=== PATIENT | female | born 2000 | race Caucasian/White ===

== ENCOUNTER 2020-10-16 15:51 | Emergency (ER) | payer OTHER, SELFPAY ==
[2020-10-16 16:17] VITALS: BP 136/76; PULSE 71; RESP 16; TEMP 36.7; O2SAT 100; BMI 26.2
--- NOTE | 2020-10-16 16:34 | CT_ITS ---
EXAMINATION: CT SOFT TISSUE NECK WITH CONTRAST CLINICAL INFORMATION: 19-year-old girl with difficulty swallowing and left-sided throat swelling. COMPARISON: None TECHNIQUE: Following the intravenous administration of 60 mL of Omnipaque 350 intravenous contrast, helical imaging was performed in the axial plane with generation of coronal and sagittal reformatted images. This CT examination was performed using dose optimization techniques as appropriate, variously including the following: *Automated exposure control *Adjustment of mA and/or kV according to patient size (this includes techniques or standardized protocols for targeted exams where dose is matched to indication/reason for exam; i.e. extremities or head) *Use of iterative reconstruction technique DLP: 363 mGy-cm FINDINGS: The palatine tonsils are globally enlarged showing diffuse enhancement but no discrete abscess formation. No bulk cervical adenopathy is identified. Scattered nodes are seen in both sides of the neck. Small lymph nodes are also present in the submandibular region. The parotid glands are homogeneous in attenuation. The submandibular glands are normal. No contour abnormality or pathologic enhancement is seen within the oral cavity or pharyngeal mucosal space. The laryngeal structures are normal. The parapharyngeal fat is preserved. The carotid sheath vasculature opacify normally. No extra mucosal soft tissue mass or fluid collection is seen. No retropharyngeal fluid collection is seen. The thyroid gland is normal. Ectopic thymic tissue is seen in the superior mediastinum. Series 4, image 48. The lung apices are clear. Small hilar lymph nodes are present. The mastoid air cells and visualized portions of the paranasal sinuses are well-aerated. The temporomandibular joints are normal. No periapical disease is identified. No osseous abnormalities are seen. The imaged portions of the brain parenchyma are unremarkable. CT/CT soft tissue neck w con IMPRESSION: Inflammation of the palatine tonsils. No abscess formation.
[2020-10-16] MEDS: 0.9 % Sodium Chloride 1,000 ML 1000 ML IV (17:10)
[2020-10-16 17:16] LABS: Basophils Absolute Auto 0.1 X10*3/uL (0.0-0.2); Basophils Percent Auto 0.5 % (0-2); Eosinophils Absolute Auto 0.6 X10*3/uL (0.0-0.4); Eosinophils Percent Auto 5.1 % (0-4); Hematocrit 40.5 % (37-47); Imm Gran Abs Auto 0.03 X10*3/uL (0.00-0.03); Imm Gran Pct Auto 0.3 % (0.0-0.4); Lymphocytes Absolute Auto 3.1 X10*3/uL (1.2-4.9); Lymphocytes Percent Auto 28.9 % (20-40); MANUAL DIFF FLAG NO; Mean Corpuscular HGB Conc 32.1 g/dl (31.0-35.0); Mean Corpuscular Hemoglobin 27.5 pg (27.0-33.0); Mean Corpuscular Volume 85.8 fL (80-98); Mean Platelet Volume 9.8 fL (9.4-12.3); Monocytes Absolute Auto 0.6 X10*3/uL (0.1-1.2); Monocytes Percent Auto 5.6 % (2-11); Neutrophils Absolute Auto 6.4 X10*3/uL (2.0-8.3); Neutrophils Percent Auto 59.6 % (45-73); Platelet Count 282 X10*3/uL (160-400); Red Blood Count 4.72 X10*6/uL (4.20-5.50); Red Cell Distribution Width 12.2 % (11.0-16.0); White Blood Count 10.7 X10*3/uL (4.8-10.8)
[2020-10-16 17:26] LABS: UPreg QC Valid YES; Urine Pregnancy NEGATIVE (NEGATIVE)
[2020-10-16 17:31] VITALS: BP 117/75; PULSE 66; RESP 18; O2SAT 100
[2020-10-16 17:36] LABS: Alanine Aminotransferase 13 U/L (0-31); Albumin Level 4.5 g/dL (3.5-5.0); Alkaline Phosphatase 97 U/L (39-117); Anion Gap 12 (12-20); Aspartate Amino Transferase 16 U/L (5-31); Bilirubin Total 0.4 mg/dL (0.0-1.0); Blood Urea Nitrogen 13 mg/dL (9-16); Calcium 9.6 mg/dL (8.4-10.2); Carbon Dioxide 27 mmol/L (22-29); Chloride 105 mmol/L (96-108); Creatinine Clr Calc Pharmacy 108.7; Estimated Glomerular Filt Rate > 60; Glucose Random 81 mg/dL (60-115); Potassium 4.3 mmol/l (3.3-5.1); Sodium 140 mmol/L (135-145); Total Protein 7.5 g/dL (6.5-8.0)
[2020-10-16] MEDS: iohexoL 350 MG/ML 100 ML INFUS..BTL IV (18:00)
[2020-10-16 19:03] VITALS: BP 112/71; PULSE 80; RESP 18; TEMP 36.6; O2SAT 100
--- NOTE | 2020-10-16 19:21 | ED.ABDPAIN ---
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 States some pain with swallowing otherwise no difficulty swallowing. Exacerbating factors: eating Relieving factors: nothing Treatments prior to arrival: NSAIDs Related Data Home Medications Medication Instructions Recorded Confirmed albuterol 90 mcg INHALATION NEEDED 10/16/20 10/16/20 Previous Rx's Medication Instructions Recorded azithromycin [Zithromax Z-Jarret] 250 mg PO DAILY 5 Days #6 tab 10/16/20 ibuprofen 800 mg PO Q8H PRN #15 tab 10/16/20 Allergies Allergy/AdvReac Type Severity Reaction Status Date / Time No Known Allergies Allergy Verified 10/16/20 16:22 Review of Systems Review of Systems Constitutional: No Weight loss, No Fever, No Chills, No Night Sweats, No Fatigue, No Malaise ENT/Mouth: No Hearing loss, No Ear Pain, No Nasal Congestion, No Sinus Pain, No Hoarseness, + sore throat Eyes: No Eye Pain, No Swelling, No Redness, No Foreign Body, No Discharge, No Vision Changes Cardiovascular: No Chest Pain, No SOB, No Dyspnea on Exertion, No Orthopnea, No Edema, No Palpitations Respiratory: No Cough, No Sputum, No Wheezing, No Smoke Exposure, No Dyspnea Gastrointestinal: No Nausea, No Vomiting, No Diarrhea, No Constipation, No abdominal Pain, No Hematochezia, No Melena Genitourinary: no irregular bleeding, No Dysuria, No Urinary Frequency, No Hematuria Musculoskeletal: No joint pain, No Myalgias, No Joint Swelling Skin: No Skin Lesions, No rash Neuro: No Weakness, No Numbness, No Paresthesias, No Loss of Consciousness Psych: No Anxiety/Panic, No Depression, No SI/HI/AH/VH, No Social Issues Heme/Lymph: No Bruising, No Bleeding,No Lymphadenopathy Endocrine: No Polyuria, No Polydipsia, No Temperature Intolerance Yes all other systems are reviewed and are negative Physical Exam Vital Signs: Vital Signs: Last Vital Signs Temp 98 F 10/16/20 19:03 Pulse 80 10/16/20 19:03 Resp 18 10/16/20 19:03 BP 112/71 10/16/20 19:03 Pulse Ox 100 10/16/20 19:03 Body Mass Index 26.2 Reviewed Const: General: cooperative and healthy appearing; No acute distress or intoxicated appearing Nutritional Appearance: average body habitus Orientation/consciousness: patient oriented x3 HENMT: Head: Yes normal to inspection Ears: hearing grossly normal bilaterally Mouth/tongue images: 1. Bilateral palatine tonsils inflamed 3+. No unilateral swelling. Posterior pharynx without swelling. 2. Eyes: General: appearance normal, both eyes and all related structures Visual Cannon: normal visual cannon by confrontation Neck: Neck: Yes normal visual inspection, No positive Brudzinski's sign, No positive Kernig's sign and No tender Thyroid: Thyroid normal Chest: Chest palpation & inspection: normal inspection of the chest Resp: Effort & Inspection: normal respiratory effort Cardio: Jugular venous distension: no JVD : General: Yes no CVA tenderness Back/Spine/Pelvis: Back: no CVA tenderness Skin: General skin exam: no rashes or lesions noted Neuro: General: patient oriented x3 Extrem: General: Yes normal to inspection Course Course Course Narrative: CT shows inflammation of the palatine tonsils otherwise no evidence of abscess formation. Patient given dose of dexamethasone here and clindamycin. Eating/drinking/managing or secretions well. Will be discharged home with clear precaution return follow-up instructions. Agreeable stable for discharge. MDM - Abdominal Pain Lab Data Result diagrams: 10/16/20 17:09 10/16/20 17:09 Labs: Lab Results 10/16/20 10/16/20 10/16/20 Range/Units 17:09 17:09 17:09 WBC 10.7 (4.8-10.8) X10*3/uL RBC 4.72 (4.20-5.50) X10*6/uL Hgb 13.0 (12.0-16.0) g/dl Hct 40.5 (37-47) % MCV 85.8 (80-98) fL MCH 27.5 (27.0-33.0) pg MCHC 32.1 (31.0-35.0) g/dl RDW 12.2 (11.0-16.0) % Plt Count 282 (160-400) X10*3/uL MPV 9.8 (9.4-12.3) fL Immature Gran % (Auto) 0.3 (0.0-0.4) % Neut % (Auto) 59.6 (45-73) % Lymph % (Auto) 28.9 (20-40) % Glades % (Auto) 5.6 (2-11) % Eos % (Auto) 5.1 H (0-4) % Baso % (Auto) 0.5 (0-2) % Lymph # (Auto) 3.1 (1.2-4.9) X10*3/uL Glades # (Auto) 0.6 (0.1-1.2) X10*3/uL Eos # (Auto) 0.6 H (0.0-0.4) X10*3/uL Baso # (Auto) 0.1 (0.0-0.2) X10*3/uL Abs Immat Gran (auto) 0.03 (0.00-0.03) X10*3/uL Absolute Neuts (auto) 6.4 (2.0-8.3) X10*3/uL Absolute Nucleated RBC 0.000 (0.0-0.012) X10*3/uL Nucleated RBC % (auto) 0.0 (0.0-0.2) /100WBC Sodium 140 (135-145) mmol/L Potassium 4.3 (3.3-5.1) mmol/l Chloride 105 (96-108) mmol/L Carbon Dioxide 27 (22-29) mmol/L Anion Gap 12 (12-20) BUN 13 (9-16) mg/dL Creatinine 0.65 (0.5-1.4) mg/dL Estim Creat Clear Calc 108.7 Estimated GFR > 60 Random Glucose 81 (60-115) mg/dL Calcium 9.6 (8.4-10.2) mg/dL Total Bilirubin 0.4 (0.0-1.0) mg/dL AST 16 (5-31) U/L ALT 13 (0-31) U/L Alkaline Phosphatase 97 (39-117) U/L Total Protein 7.5 (6.5-8.0) g/dL Albumin 4.5 (3.5-5.0) g/dL Urine Test NEGATIVE (NEGATIVE) Discharge Plan Discharge Clinical Impression: Acute tonsillitis Qualifiers: Pharyngitis/tonsillitis etiology: unspecified etiology Qualified Code(s): J03.90 - Acute tonsillitis, unspecified Patient Disposition: Home, Self-Care Additional Instructions: Salt water gargle Throat lozenges Take her prescribed antibiotics for full course Tylenol or ibuprofen for pain discomfort per label instructions Return if any concerns or worsening symptoms otherwise follow up with her primary care doctor in 1 week Thank you Prescriptions: New azithromycin [Zithromax Z-Jarret] 250 mg tablet 250 mg PO DAILY 5 Days Qty: 6 RF: 0 ibuprofen 800 mg tablet 800 mg PO Q8H PRN (Reason: pain) Qty: 15 RF: 0 No Action albuterol 90 mcg/actuation Aerosol 90 mcg INHALATION NEEDED RF: 0 Referrals: Irasema Taylor MD [Primary Care Provider] - 5 days [facility] Social History Social History Alcohol intake: never Smoked in Last 30 Days: No Use of substances other than those prescribed or required for medical reasons: No Advance Directives: No Advance Directives Information Provided: Yes
[2020-10-16 20:00] VITALS: BP 116/79; PULSE 79; RESP 18; TEMP 36.6; O2SAT 99
[2020-10-16] MEDS: dexAMETHasone sod phosphate 4 MG/ML VIAL IVPUSH (20:03)
== END 2020-10-16 20:04 | disposition home or self-care (01) ==
PROVIDERS: Nurse Practitioner Primary Care; Emergency Provider Emergency Medicine; PCP Pediatrics
DX: J03.90 Acute tonsillitis, unspecified (principal); R07.0 Pain in throat; Z79.899 Other long term (current) drug therapy; Z20.828 Contact with and (suspected) exposure to other viral communicable diseases
CPT/HCPCS: 36415; 70491; 80053; 81025; 85025; 87071; 87880; 96360; 99284; J1100; Q9967

== ENCOUNTER 2020-12-19 09:32 | Outpatient (REF) | payer OTHER, SELFPAY ==
--- NOTE | 2020-12-19 14:17 | XR_ITS ---
EXAMINATION: XR KNEE, BILATERAL XR KNEE, RIGHT XR KNEE, LEFT CLINICAL INFORMATION: Knee pain. COMPARISON: None TECHNIQUE: AP standing view of both knees. 2 additional views of each knee. FINDINGS: Right knee: No fracture or subluxation. Compartmental joint spaces are maintained. No joint effusion. The soft tissues are unremarkable. Left knee: No fracture or subluxation. Compartmental joint spaces are maintained. No joint effusion. The soft tissues are unremarkable. XR/XR knee RT 2V IMPRESSION: Normal appearance of the knees.
--- NOTE | 2020-12-19 14:17 | XR_ITS ---
EXAMINATION: XR KNEE, BILATERAL XR KNEE, RIGHT XR KNEE, LEFT CLINICAL INFORMATION: Knee pain. COMPARISON: None TECHNIQUE: AP standing view of both knees. 2 additional views of each knee. FINDINGS: Right knee: No fracture or subluxation. Compartmental joint spaces are maintained. No joint effusion. The soft tissues are unremarkable. Left knee: No fracture or subluxation. Compartmental joint spaces are maintained. No joint effusion. The soft tissues are unremarkable. XR/XR knee standing BI IMPRESSION: Normal appearance of the knees.
--- NOTE | 2020-12-19 14:17 | XR_ITS ---
EXAMINATION: XR KNEE, BILATERAL XR KNEE, RIGHT XR KNEE, LEFT CLINICAL INFORMATION: Knee pain. COMPARISON: None TECHNIQUE: AP standing view of both knees. 2 additional views of each knee. FINDINGS: Right knee: No fracture or subluxation. Compartmental joint spaces are maintained. No joint effusion. The soft tissues are unremarkable. Left knee: No fracture or subluxation. Compartmental joint spaces are maintained. No joint effusion. The soft tissues are unremarkable. XR/XR knee LT 2V IMPRESSION: Normal appearance of the knees.
== END 2020-12-19 09:33 | disposition home or self-care (01) ==
LOC: HO.HOSX 09:32
PROVIDERS: Visit Provider Physician Assistant
DX: M22.2X1 Patellofemoral disorders, right knee (principal); M22.2X2 Patellofemoral disorders, left knee
CPT/HCPCS: 73560; 73565; 99202

== ENCOUNTER 2021-06-19 14:58 | Outpatient (REF) | payer OTHER, SELFPAY ==
[2021-06-19 15:26] LABS: MANUAL DIFF FLAG NO
[2021-06-19 15:29] LABS: Basophils Percent Auto 0.3 % (0-2); Eosinophils Absolute Auto 0.3 X10*3/uL (0.0-0.4); Hematocrit 40.5 % (37-47); Hemoglobin 13.3 g/dl (12.0-16.0); Imm Gran Abs Auto 0.03 X10*3/uL (0.00-0.03); Imm Gran Pct Auto 0.3 % (0.0-0.4); Lymphocytes Percent Auto 22.3 % (20-40); Mean Corpuscular HGB Conc 32.8 g/dl (31.0-35.0); Mean Corpuscular Hemoglobin 27.8 pg (27.0-33.0); Mean Corpuscular Volume 84.6 fL (80-98); Mean Platelet Volume 9.7 fL (9.4-12.3); Monocytes Absolute Auto 0.5 X10*3/uL (0.1-1.2); Monocytes Percent Auto 5.6 % (2-11); Neutrophils Percent Auto 68.5 % (45-73); Platelet Count 273 X10*3/uL (160-400); Red Blood Count 4.79 X10*6/uL (4.20-5.50); Red Cell Distribution Width 12.2 % (11.0-16.0); White Blood Count 8.7 X10*3/uL (4.8-10.8)
[2021-06-19 15:54] LABS: Alanine Aminotransferase 19 U/L (0-31); Albumin Level 4.3 g/dL (3.5-5.0); Alkaline Phosphatase 89 U/L (39-117); Anion Gap 13 (12-20); Aspartate Amino Transferase 23 U/L (5-31); Bilirubin Total 0.5 mg/dL (0.0-1.0); Blood Urea Nitrogen 11 mg/dL (9-16); Calcium 9.9 mg/dL (8.4-10.2); Carbon Dioxide 26 mmol/L (22-29); Chloride 106 mmol/L (96-108); Cholesterol 191 mg/dL; Estimated Glomerular Filt Rate > 60; Glucose Fasting 85 mg/dL (60-99); HDL Cholesterol 48 mg/dL; LDL Cholesterol Calculated 130 mg/dl; Potassium 4.7 mmol/L (3.3-5.1); Sodium 140 mmol/L (135-145); Total Protein 7.2 g/dL (6.5-8.0); Triglycerides 69 mg/dL
[2021-06-19 16:14] LABS: Thyroid Stimulating Hormone 0.55 uIU/mL (0.32-4.0)
[2021-06-24 12:52] LABS: Vitamin D 25-OH, D2 <4 ng/mL; Vitamin D 25-OH, D3 21 ng/mL; Vitamin D 25-OH, Total 21 ng/mL (30-100)
== END 2021-06-19 14:59 | disposition home or self-care (01) ==
LOC: HO.LAB 14:58
PROVIDERS: PCP Internal Medicine; Visit Provider Internal Medicine
DX: E66.3 Overweight (principal); E55.9 Vitamin D deficiency, unspecified; E78.5 Hyperlipidemia, unspecified; D64.9 Anemia, unspecified
CPT/HCPCS: 36415; 80053; 80061; 82306; 84443; 85025

== ENCOUNTER 2023-08-12 14:21 | Outpatient (AMB) | payer OTHER, SELFPAY ==
--- NOTE | 2023-08-12 14:25 | MHC.PC.OV ---
Vital Signs 08/12/23 14:27 Height 4 ft 11 in Weight 132 lb BMI 26.7 BP 116/64 Blood Pressure Location Lt brachial Position Sitting Respiration 12 Pulse 87 Pulse Source Pulse Oximeter Pulse Oximetry (%) 98 Oxygen Delivery Method Room Air Intake Visit Reasons: Annual Exam Non Destructive Testing Supervisor Required: No Accompanied by: Self / Same As Patient Allergies Seasonal Allergies Allergy (Intermediate, Verified 08/12/23 14:37) sneezing, mucus Medication List - Last Reconciled 08/12/23 by RIRI Hamilton albuterol sulfate 90 mcg/actuation 2 puffs inhalation Q6H PRN 30 days Tobacco use date assessed: 08/12/23 Dental Screening Dental Screen Date: 08/12/23 Did you have a dental visit in the last 12 months?: Yes Did you have a dental problem in the last 6 months where you did not have access to dental care?: No Was dental information given to patient?: Patient has dentist HPI HPI Comments History of Present Illness Details This is a 21-year-old female with mild asthma and patellofemoral bilateral knee arthralgia. Patient of Dr. Adria gifford seen in 2021. Patient presents today for physical exam. Patient reports sore throat x1 week denies any fever, chills, cough, nasal congestion. Rapid strep completed office negative. Patient denies any chest pain, palpitations, syncope. Patient does report that the [facility] today did her hemoglobin which the reported to her was 7 via fingerstick. Patient does report she does get fatigued and has dizziness at times. Will obtain CBC to further evaluate. Pap:2 years ago, Follows with Jose dennis annually for well woman exams. Eye exam: Recommended every couple years. [facility] Medical History Abdominal pain Overweight (BMI 25.0-29.9) Mild asthma Surgical History No pertinent past surgical history Family History Mother No problems noted. Father No problems noted. Social History Housing: House Alcohol intake: current Alcohol intake frequency: holidays/special occasions only Alcohol type: other Patient Tobacco Use Status: Never used Tobacco e-Cigarette/Vaping Use: Never Used Second Hand Smoke Exposure: No service: No Current occupational status: employed Current occupation: [employer] Current occupational exposures/hazards: No Cognitive needs: No Hearing needs: No Vision needs: No Questionnaire Thrive Questionnaire Date Thrive assessed: 06/19/21 LUDMILA-7 AMB Questionnaire LUDMILA-7 Date LUDMILA - 7 assessed: 06/19/21 Source: Developed by Drs. Pete Begum, Christy Michelle, Mike Cameron and colleagues, with an educational sybil from [employer]. Review of Systems Const Denies chills, Denies fatigue, Denies fever(s) and Denies poor appetite Eyes Denies no additional complaints ENT Reports Normal hearing present Card Denies chest pain, Denies syncope, Denies rapid heart rate and Denies dyspnea Resp Denies cough and Denies dyspnea GI Denies change in stool character, Denies constipation, Denies diarrhea, Denies nausea and Denies vomiting Denies urinary frequency, Denies dysuria and Denies urinary urgency Neuro Reports Normal hearing present, Denies confusion and Denies syncope Psych Denies confusion Endo Denies fatigue Physical exam (Primary Care) Vital Signs: Last Vital Signs Pulse 87 08/12/23 14:27 Resp 12 08/12/23 14:27 BP 116/64 08/12/23 14:27 Pulse Ox 98 08/12/23 14:27 Oxygen Delivery Method Room Air 08/12/23 14:27 BMI result Body Mass Index 26.7 Tobacco/Smoking Status: Tobacco use Status Tobacco use date assessed 08/12/23 08/12/23 14:32 Patient Tobacco Use Status Never used Tobacco 08/12/23 14:32 e-Cigarette/Vaping Use Never Used 08/12/23 14:32 Thrive Assessment: Date of Thrive Assessment Date Thrive assessed 06/19/21 08/12/23 14:32 Const General: No confusion Orientation/consciousness: No confusion HENMT Head: Yes normocephalic and Yes atraumatic Ears: external ears normal and TM's normal bilaterally General nose exam: Normal external nose present and Normal nasal mucous membranes and turbinates present Face and sinus: Yes normal facial exam and Yes sinuses nontender Mouth: moist mucous membranes Throat: Yes tonsils normal Eyes Conjunctivae: conjunctivae normal Sclerae: sclerae normal Pupils: Equal, round and reactive pupils present and Pupils normal by confrontation EOM: EOMs intact bilaterally Direct Ophthalmoscopy: normal light reflex Neck Neck: Yes no lymphadenopathy and Yes supple Thyroid: Thyroid normal Chest Chest palpation & inspection: normal inspection of the chest Resp Effort & Inspection: normal respiratory effort Auscultation: clear to auscultation bilaterally, no crackles, no rhonchi and no wheezes Cardio Rate: regular rate Rhythm: regular rhythm Peripheral pulses: radial pulses present and dorsalis pedis present GI Inspection: Yes normal to inspection Palpation (GI): Soft to palpation, nontender and No hepatosplenomegaly present Auscultation: normoactive bowel sounds Skin General skin exam: no rashes or lesions noted Neuro General: No confusion Cranial nerves: Yes Equal, round and reactive pupils present and Yes Normal hearing present Cognition (Neuro): normal cognition Gait exam (Neuro): Normal gait present Motor exam (neuro): 5/5 motor strength present throughout Deep tendon reflexes (DTR's): Right brachioradialis reflex intensity grade: 2+, Left brachioradialis reflex intensity grade: 2+, Right patellar reflex intensity grade: 2+ and Left patellar reflex intensity grade: 2+ Extrem General: No edema Assessment and Plan Assessment & Plan (1) Physical exam, annual: Code(s): Z00.00 - Encounter for general adult medical examination without abnormal findings Plan: Follow-up in 1 year. (2) Sore throat: Code(s): J02.9 - Acute pharyngitis, unspecified Plan: Rapid strep negative. Patient advise can take [id number] ibuprofen as for pain and can gargle with warm salt water to soothe throat. (3) Low hemoglobin: Code(s): D64.9 - Anemia, unspecified Plan: CBC ordered to further evaluate for possible anemia. Plan Follow-up in 1 year for physical exam. Orders: Orders Comprehensive Met. Panel 08/12/23 Z13.1 - Encounter for screening for diabetes mellitus Complete Blood Count no Diff 08/12/23 D64.9 - Anemia, unspecified Coding Level of Care Code Est Pt Prev Care [id number]([id number]) Diagnoses Physical exam, annual Z00.00 Sore throat J02.9 Low hemoglobin D64.9
[2023-08-12 14:27] VITALS: BP 116/64; PULSE 87; RESP 12; O2SAT 98; BMI 26.7
== END 2023-08-12 15:01 | disposition home or self-care (01) ==
PROVIDERS: PCP Internal Medicine; Visit Provider Nurse Practitioner Family
DX: Z00.00 Encounter for general adult medical examination without abnormal findings (principal); J02.9 Acute pharyngitis, unspecified; D64.9 Anemia, unspecified
CPT/HCPCS: 99395

== ENCOUNTER 2023-08-12 15:13 | Outpatient (REF) | payer OTHER, SELFPAY ==
[2023-08-12 16:16] LABS: Hematocrit 37.8 % (37.0-47.0); Hemoglobin 12.2 g/dl (12.0-16.0); Mean Corpuscular HGB Conc 32.3 g/dl (31.0-35.0); Mean Corpuscular Volume 83.6 fL (80.0-98.0); Mean Platelet Volume 10.2 fL (9.4-12.3); Platelet Count 296 X10*3/uL (160-400); Red Blood Count 4.52 X10*6/uL (4.20-5.50); Red Cell Distribution Width 13.8 % (11.0-16.0); White Blood Count 6.8 X10*3/uL (4.8-10.8)
[2023-08-12 17:01] LABS: Alanine Aminotransferase 9 U/L (0-31); Albumin Level 4.2 g/dL (3.5-5.0); Alkaline Phosphatase 91 U/L (39-117); Anion Gap 8 (12-20); Aspartate Amino Transferase 15 U/L (5-31); Bilirubin Total 0.5 mg/dL (0.0-1.0); Blood Urea Nitrogen 8 mg/dL (9-16); Calcium 9.9 mg/dL (8.4-10.2); Carbon Dioxide 27 mmol/L (22-29); Chloride 108 mmol/L (96-108); Estimated Glomerular Filt Rate > 60; Glucose Random 85 mg/dL (60-115); Potassium 4.4 mmol/L (3.3-5.1); Sodium 139 mmol/L (135-145); Total Protein 7.2 g/dL (6.5-8.0)
== END 2023-08-12 15:14 | disposition home or self-care (01) ==
LOC: HO.LAB 15:13
PROVIDERS: PCP Nurse Practitioner Family; Visit Provider Nurse Practitioner Family
DX: D64.9 Anemia, unspecified (principal); Z13.1 Encounter for screening for diabetes mellitus
CPT/HCPCS: 36415; 80053; 85027

== ENCOUNTER 2023-09-02 09:33 | Outpatient (AMB) | payer OTHER, SELFPAY ==
[2023-09-02 09:51] VITALS: BP 94/62; PULSE 84; RESP 16; O2SAT 98; BMI 26.7
--- NOTE | 2023-09-02 09:51 | MHC.PC.OV ---
Vital Signs 09/02/23 09:51 Height 4 ft 11 in Weight 132 lb BMI 26.7 BP 94/62 Blood Pressure Location Lt brachial Position Sitting Respiration 16 Pulse 84 Pulse Source Pulse Oximeter Pulse Oximetry (%) 98 Oxygen Delivery Method Room Air Intake Visit Reasons: 2 weeks f/u Medicine Technologist Required: No Accompanied by: Self / Same As Patient Allergies Seasonal Allergies Allergy (Intermediate, Verified 09/02/23 09:55) sneezing, mucus Tobacco use date assessed: 08/12/23 Dental Screening Dental Screen Date: 09/02/23 Did you have a dental visit in the last 12 months?: Yes Did you have a dental problem in the last 6 months where you did not have access to dental care?: No Was dental information given to patient?: Patient has dentist HPI HPI Comments History of Present Illness Details 22-year-old female past medical History significant for mild asthma. Patient presents today for for bilateral hip pain. PAtient states throbbing pain back side bilateral buttocks. Patient reports she would has lower back pain, that occasionally radiates down right leg with numbness and tingling in at times her right leg will feel weak. Patient denies any bowel or bladder incontinence or saddle paresthesia. Patient also states has bilateral hip pain and occasionally her hips will crack. Patient reports has use Lidoderm patches in the past with relief of pain. Has never completed physical therapy for this. Patient also reports hair loss which is likely related to as she just had a baby 3 months ago labs unremarkable. Patient advised to follow up if persists. Patient also reports occasional lightheadedness but states she does not drink any water in may be eats 1 meal a day. Patient advised to increase water intake daily and to eat 3 meals a day. Lightheadedness likely related to dehydration. FORMERLY [facility] Medical History Abdominal pain Overweight (BMI 25.0-29.9) Mild asthma Surgical History No pertinent past surgical history Family History Mother No problems noted. Father No problems noted. Social History Housing: House Alcohol intake: current Alcohol intake frequency: holidays/special occasions only Alcohol type: other Patient Tobacco Use Status: Never used Tobacco e-Cigarette/Vaping Use: Never Used Second Hand Smoke Exposure: No service: No Current occupational status: employed Current occupation: [employer] Current occupational exposures/hazards: No Cognitive needs: No Hearing needs: No Vision needs: No Questionnaire PHQ-9 Over the last 2 weeks, how often have you been bothered by any of the following problems? 1. Little interest or pleasure in doing things: not at all 2. Feeling down, depressed, or hopeless: not at all 3. Trouble falling or staying asleep, or sleeping too much: not at all 4. Feeling tired or having little energy: not at all 5. Poor appetite or overeating: not at all 6. Feeling bad about yourself - or that you are a failure or have let yourself or your family down: not at all 7. Trouble concentrating on things, such as reading the newspaper or watching television: not at all 8. Moving or speaking so slowly that other people could have noticed. Or the opposite - being so fidgety or restless that you have been moving around a lot more than usual: not at all 9. Thoughts that you would be better off or of hurting yourself in some way: not at all Total score: 0 Depression Screening Interpretation: Negative Depression Screening Done: Yes 21842 - PHQ-9 Billing: Yes Source: Developed by Drs. Pete Begum, Christy Michelle, Mike Cameron and colleagues, with an educational sybil from [employer]. Thrive Questionnaire Date Thrive assessed: 09/02/23 I am a: Patient What is your living situation today?: I have a steady place to live Within the past 12 months, did the food you bought not last and you didn't have the money to get more?: Never true Within the past 12 months, did you worry whether your food would run out before you got money to buy more?: Never true Do you have trouble paying for medicines?: No Do you have trouble getting transportation to medical appointments?: No Do you have trouble paying your heating and electricity bill?: No Do you have trouble taking care of your child, family member or friend?: No Do you have trouble with day-to-day activities such as bathing, preparing meals, shopping, managing finances, etc.?: No Are you currently unemployed and looking for a job?: No Are you interested in more education?: No Please select the resources that you would like help with: None Currently or been in a relationship where the following occur: no concerns reported AUDIT C Alcohol Use Questionnaire (AUDIT-C) 1. How often do you have a drink containing alcohol?: Monthly or less 2. How many drinks containing alcohol do you have on a typical day when you are drinking?: 1 or 2 3. How often do you have six or more drinks on one occasion?: Never Total Score: 1 LUDMILA-7 AMB Questionnaire LUDMILA-7 Date LUDMILA - 7 assessed: 09/02/23 Feeling nervous, anxious, or on edge: 0 = Not at all Not being able to stop or control worryin = Not at all Worrying too much about different things: 0 = Not at all Trouble relaxin = Not at all Being so restless that it is hard to sit still: 0 = Not at all Becoming easily annoyed or irritable: 0 = Not at all Feeling afraid as if something awful might happen: 0 = Not at all Total LUDMILA-7 score (0-4 normal; 5-9 mild; 10-14 moderate; 15-21 severe): 0 Source: Developed by Drs. Pete Begum, Christy Michelle, Mike Cameron and colleagues, with an educational sybil from [employer]. LUDMILA-7 Assessment Billing LUDMILA-7 Assessment Tool: LUDMILA-7 Assessment 25123 Review of Systems Const Denies chills, Denies fatigue, Denies fever(s) and Denies poor appetite ENT Reports Normal hearing present Card Denies chest pain, Denies syncope, Denies rapid heart rate and Denies dyspnea Resp Denies cough and Denies dyspnea Musc Reports back pain (Lower back pain) and Reports other (Patient reports bilateral hip pain with cracking.) Neuro Reports Normal hearing present, Denies confusion and Denies syncope Psych Denies confusion Endo Denies fatigue Physical exam (Primary Care) Vital Signs: Last Vital Signs Pulse 84 09/02/23 09:51 Resp 16 09/02/23 09:51 BP 94/62 09/02/23 09:51 Pulse Ox 98 10/12/23 09:51 Oxygen Delivery Method Room Air 10/12/23 09:51 BMI result Body Mass Index 26.7 Tobacco/Smoking Status: Tobacco use Status Tobacco use date assessed 08/12/23 09/02/23 09:56 Patient Tobacco Use Status Never used Tobacco 09/02/23 09:56 e-Cigarette/Vaping Use Never Used 09/02/23 09:56 PHQ-9: PHQ-9 Score PHQ-9: Total score 0 09/02/23 10:19 Depression Screening Interpretation: Negative Thrive Assessment: Date of Thrive Assessment Date Thrive assessed 09/02/23 09/02/23 09:56 Currently or been in a relationship where the following occur: no concerns reported Const General: No confusion Orientation/consciousness: No confusion HENMT Head: Yes normocephalic and Yes atraumatic Eyes Conjunctivae: conjunctivae normal Chest Chest palpation & inspection: normal inspection of the chest Resp Effort & Inspection: normal respiratory effort Auscultation: clear to auscultation bilaterally, no crackles, no rhonchi and no wheezes Cardio Rate: regular rate Rhythm: regular rhythm Heart sounds: S1 normal heart sound present and S2 normal heart sound present Peripheral pulses: dorsalis pedis present GI Inspection: Yes normal to inspection General: Yes no CVA tenderness Back/Spine/Pelvis Back: no CVA tenderness Cervical Spine: normal cervical lordosis and cervical ROM normal Thoracic/Lumbar Spine: thoracic and lumbar spine normal to inspection, No paraspinal muscle tenderness, No thoracic spinal tenderness and No lumbar spinal tenderness Pelvis: no pain with anterior-posterior compression and buttock tenderness on the right Neuro General: No confusion Cranial nerves: Yes Normal hearing present Extrem General: No edema Assessment and Plan Assessment & Plan (1) Lumbar back pain with radiculopathy affecting lower extremity: Code(s): M54.16 - Radiculopathy, lumbar region Plan: X-ray of lumbar spine ordered. Can take ibuprofen 400 mg and Lidoderm patches as needed for pain. Patient advised to take ibuprofen with food to prevent GI upset. Referral entered to physical therapy for lumbar back pain with right greater than left sciatica (2) Bilateral hip pain: Code(s): M25.551 - Pain in right hip; M25.552 - Pain in left hip Plan: Bilateral hips and pelvis x-rays ordered to further evaluate. Can take ibuprofen as needed for pain. Plan Keep scheduled physical exam or follow-up sooner if needed Orders: Orders XR hip BI w PEL1V Today M25.551 - Pain in right hip, M25.552 - Pain in left hip, M54.16 - Radiculopathy, lumbar region XR lumbar spine 2-3V Today M54.16 - Radiculopathy, lumbar region PT Evaluation and Treatment Today M54.16 - Radiculopathy, lumbar region Medications: New lidocaine 5% (Lidoderm) leave on most painful area for up to 12 hrs 1 patch topical DAILY 15 ea 0RF M54.16 - Radiculopathy, lumbar region ibuprofen 400 mg PO Q8H PRN 30 tabs 0RF pain M25.551 - Pain in right hip, M25.552 - Pain in left hip, M54.16 - Radiculopathy, lumbar region Coding Level of Care Code Est Pt Level 3 (32099) Diagnoses Lumbar back pain with radiculopathy affecting lower extremity M54.16 Bilateral hip pain M25.551; M25.552 Additional Codes LUDMILA-7 Assessment Billing - LUDMILA-7 Assessment Tool: LUDMILA-7 Assessment 12337 ([id number])
== END 2023-09-02 10:27 | disposition home or self-care (01) ==
PROVIDERS: PCP Internal Medicine; Visit Provider Nurse Practitioner Family
DX: M54.16 Radiculopathy, lumbar region (principal); M25.551 Pain in right hip; M25.552 Pain in left hip; J45.909 Unspecified asthma, uncomplicated
CPT/HCPCS: 99213

== ENCOUNTER 2024-04-14 14:00 | Outpatient (REF) | payer OTHER, SELFPAY ==
[2024-04-14 14:15] LABS: MANUAL DIFF FLAG NO
[2024-04-14 14:29] LABS: Basophils Percent Auto 0.5 % (0-2); Eosinophils Absolute Auto 0.3 X10*3/uL (0.0-0.4); Eosinophils Percent Auto 4.4 % (0-4); Hematocrit 36.7 % (37.0-47.0); Hemoglobin 12.3 g/dl (12.0-16.0); Imm Gran Abs Auto 0.01 X10*3/uL (0.00-0.03); Imm Gran Pct Auto 0.2 % (0.0-0.4); Lymphocytes Absolute Auto 1.5 X10*3/uL (1.2-4.9); Lymphocytes Percent Auto 22.6 % (20-40); Mean Corpuscular HGB Conc 33.5 g/dl (31.0-35.0); Mean Corpuscular Hemoglobin 27.9 pg (27.0-33.0); Mean Corpuscular Volume 83.2 fL (80.0-98.0); Mean Platelet Volume 9.6 fL (9.4-12.3); Monocytes Absolute Auto 0.4 X10*3/uL (0.1-1.2); Monocytes Percent Auto 5.6 % (2-11); Neutrophils Absolute Auto 4.4 x10*3/uL (2.0-8.3); Neutrophils Percent Auto 66.7 % (45-73); Platelet Count 256 X10*3/uL (160-400); Red Blood Count 4.41 X10*6/uL (4.20-5.50); Red Cell Distribution Width 12.4 % (11.0-16.0); White Blood Count 6.6 X10*3/uL (4.8-10.8)
[2024-04-14 14:59] LABS: Alanine Aminotransferase 10 U/L (0-31); Albumin Level 4.1 g/dL (3.5-5.0); Alkaline Phosphatase 83 U/L (39-117); Anion Gap 10 (12-20); Aspartate Amino Transferase 16 U/L (5-31); Bilirubin Total 0.6 mg/dL (0.0-1.0); Blood Urea Nitrogen 10 mg/dL (9-16); Calcium 9.2 mg/dL (8.4-10.2); Carbon Dioxide 26 mmol/L (22-29); Chloride 108 mmol/L (96-108); Cholesterol 174 mg/dL (<200); Estimated Glomerular Filt Rate > 60; Glucose Fasting 90 mg/dL (60-99); HDL Cholesterol 48 mg/dL (>40); LDL Cholesterol Calculated 113 mg/dL (<100); Potassium 3.9 mmol/L (3.3-5.1); Sodium 140 mmol/L (135-145); Total Protein 7.2 g/dL (6.5-8.0); Triglycerides 66 mg/dL (<150)
== END 2024-04-14 14:01 | disposition home or self-care (01) ==
LOC: HO.LAB 14:00
PROVIDERS: PCP Internal Medicine; Visit Provider Internal Medicine
DX: J45.909 Unspecified asthma, uncomplicated (principal); E66.3 Overweight
CPT/HCPCS: 36415; 80053; 80061; 85025

== ENCOUNTER 2024-04-19 07:58 | Outpatient (AMB) | payer OTHER, SELFPAY ==
[2024-04-19 08:07] VITALS: BP 108/76; BMI 28.1
--- NOTE | 2024-04-19 08:07 | A.OFFPC_ITS ---
Vital Signs 04/19/24 08:07 Height 4 ft 11 in Weight 139 lb BMI 28.1 BP 108/76 Blood Pressure Location Lt brachial Position Sitting Intake Visit Reasons: Bruises on her body Intake Note: Patient here c/o body bruising, bilateral knee pain, asthma Fish Net Maker Required: No Accompanied by: Self / Same As Patient Allergies Seasonal Allergies Allergy (Intermediate, Verified 04/19/24 08:19) sneezing, mucus Medication List - Last Reconciled 04/19/24 by Shantell Piña MD albuterol sulfate 90 mcg/actuation 2 puffs inhalation Q6H PRN 30 days ibuprofen 400 mg PO Q8H PRN lidocaine 5% (Lidoderm) 1 patch topical DAILY Tobacco use date assessed: 04/19/24 Dental Screening Dental Screen Date: 04/19/24 Did you have a dental visit in the last 12 months?: Yes Did you have a dental problem in the last 6 months where you did not have access to dental care?: No Was dental information given to patient?: Patient has dentist HPI HPI Comments History of Present Illness Details This is a 23-year-old female with asthma, allergic rhinitis, bilateral knee pain that comes today for follow-up on her conditions. She is using rescue inhaler at least once a week and I will add a long-acting inhaler due to this matter. She does have allergic rhinitis secondary to pollen and I will add cetirizine as needed. She complains of bilateral knee pain that started 2020 with no previous trauma. I will order x-rays and refer her to ortho. Had occasional chest pain associated with palpitation that happens at bedtime and I will order on EKG. PENDING SALE TO [facility] Medical History (Updated 04/19/24 @ 08:36 by Shantell Piña MD) Abdominal pain Overweight (BMI 25.0-29.9) Mild asthma Surgical History No pertinent past surgical history Family History Mother No problems noted. Father No problems noted. Social History Housing: House Alcohol intake: current Alcohol intake frequency: holidays/special occasions only Alcohol type: other Patient Tobacco Use Status: Never used Tobacco e-Cigarette/Vaping Use: Never Used Second Hand Smoke Exposure: No service: No Current occupational status: employed Current occupation: [employer] Current occupational exposures/hazards: No Cognitive needs: No Hearing needs: No Vision needs: No Questionnaire PHQ-9 Over the last 2 weeks, how often have you been bothered by any of the following problems? 1. Little interest or pleasure in doing things: not at all 2. Feeling down, depressed, or hopeless: not at all 3. Trouble falling or staying asleep, or sleeping too much: not at all 4. Feeling tired or having little energy: not at all 5. Poor appetite or overeating: not at all 6. Feeling bad about yourself - or that you are a failure or have let yourself or your family down: not at all 7. Trouble concentrating on things, such as reading the newspaper or watching television: not at all 8. Moving or speaking so slowly that other people could have noticed. Or the opposite - being so fidgety or restless that you have been moving around a lot more than usual: not at all 9. Thoughts that you would be better off or of hurting yourself in some way: not at all Total score: 0 Depression Screening Interpretation: Negative Depression Screening Done: Yes 37770 - PHQ-9 Billing: Yes Source: Developed by Drs. Pete Begum, Christy Michelle, Mike Cameron and colleagues, with an educational sybil from [employer]. Thrive Questionnaire Date Thrive assessed: 04/19/24 I am a: Patient What is your living situation today?: I have a steady place to live Within the past 12 months, did the food you bought not last and you didn't have the money to get more?: Never true Within the past 12 months, did you worry whether your food would run out before you got money to buy more?: Never true Do you have trouble paying for medicines?: No Do you have trouble getting transportation to medical appointments?: No Do you have trouble paying your heating and electricity bill?: No Do you have trouble taking care of your child, family member or friend?: No Do you have trouble with day-to-day activities such as bathing, preparing meals, shopping, managing finances, etc.?: No Are you currently unemployed and looking for a job?: No Are you interested in more education?: No Please select the resources that you would like help with: None Currently or been in a relationship where the following occur: no concerns reported THRIVE Score: 0 AUDIT C Alcohol Use Questionnaire (AUDIT-C) 1. How often do you have a drink containing alcohol?: Monthly or less 2. How many drinks containing alcohol do you have on a typical day when you are drinking?: 1 or 2 3. How often do you have six or more drinks on one occasion?: Never Total Score: 1 Score Reviewed/Action Taken: No LUDMILA-7 AMB Questionnaire LUDMILA-7 Date LUDMILA - 7 assessed: 04/19/24 Feeling nervous, anxious, or on edge: 0 = Not at all Not being able to stop or control worryin = Not at all Worrying too much about different things: 0 = Not at all Trouble relaxin = Not at all Being so restless that it is hard to sit still: 0 = Not at all Becoming easily annoyed or irritable: 0 = Not at all Feeling afraid as if something awful might happen: 0 = Not at all Total LUDMILA-7 score (0-4 normal; 5-9 mild; 10-14 moderate; 15-21 severe): 0 Source: Developed by Drs. Pete Begum, Christy Michelle, Mike Cameron and colleagues, with an educational sybil from [employer]. LUDMILA-7 Assessment Billing LUDMILA-7 Assessment Tool: LUDMIAL-7 Assessment 99783 Review of Systems Const All systems reviewed & are unremarkable except as noted in HPI and below Card Denies chest pain at rest, Denies chest pain with activity, Denies edema, Denies irregular heart rhythm, Denies claudication, Denies dyspnea, Denies dyspnea on exertion, Denies orthopnea, Denies paroxysmal nocturnal dyspnea and Denies slow heart rate Resp Denies cough, Denies dyspnea and Denies dyspnea on exertion Musc Reports arthralgias Ziggy/Lymph Reports easy bruising Physical exam (Primary Care) Vital Signs: Last Vital Signs BP 108/76 04/19/24 08:07 BMI result Body Mass Index 28.1 Tobacco/Smoking Status: Tobacco use Status Tobacco use date assessed 04/19/24 04/19/24 08:11 Patient Tobacco Use Status Never used Tobacco 04/19/24 08:11 e-Cigarette/Vaping Use Never Used 04/19/24 08:11 PHQ-9: PHQ-9 Score PHQ-9: Total score 0 04/19/24 08:11 Depression Screening Interpretation: Negative Thrive Assessment: Date of Thrive Assessment Date Thrive assessed 04/19/24 04/19/24 08:11 Currently or been in a relationship where the following occur: no concerns reported Resp Effort & Inspection: normal respiratory effort Auscultation: clear to auscultation bilaterally Cardio Jugular venous distension: no JVD Rate: regular rate Rhythm: regular rhythm Heart sounds: S1 normal heart sound present and S2 normal heart sound present Extrem General: Yes full ROM Assessment and Plan Assessment & Plan (1) Moderate persistent asthma: Code(s): J45.40 - Moderate persistent asthma, uncomplicated Plan: Start Trelegy. Use rescue inhaler as needed. (2) Seasonal allergic rhinitis due to pollen: Code(s): J30.1 - Allergic rhinitis due to pollen Plan: Start antihistamines as needed. (3) Left knee pain: Code(s): M25.562 - Pain in left knee Qualifiers: Chronicity: chronic Qualified Code(s): M25.562 - Pain in left knee; G89.29 - Other chronic pain Plan: X-ray ordered. Referred to Ortho. (4) Right knee pain: Code(s): M25.561 - Pain in right knee Qualifiers: Chronicity: chronic Qualified Code(s): M25.561 - Pain in right knee; G89.29 - Other chronic pain Plan: X-ray ordered. Referred to Ortho. Orders: Orders ECG 12 lead EKG Today R07.9 - Chest pain, unspecified XR knee LT 2V Today M25.562 - Pain in left knee XR knee RT 2V Today M25.561 - Pain in right knee Referrals Orthopedics Referral M25.561 - Pain in right knee, M25.562 - Pain in left knee Medications: New nrnpaewhqyi-askeogvfp-hxuzexzf 100-62.5-25 mcg (Trelegy Ellipta) 1 inh inhal ation DAILY 28 days 28 ea 6RF J45.40 - Moderate persistent asthma, uncomplicated cetirizine (All Day Allergy (cetirizine)) 10 mg PO DAILY 30 days PRN 30 tabs 2RF allergy symptoms J30.1 - Allergic rhinitis due to pollen Refilled lidocaine 5% (Lidoderm) leave on most painful area for up to 12 hrs 1 patch topical DAILY 15 ea 0RF M54.16 - Radiculopathy, lumbar region ibuprofen 400 mg PO Q8H PRN 30 tabs 0RF pain M25.551 - Pain in right hip, M25.552 - Pain in left hip, M54.16 - Radiculopathy, lumbar region albuterol sulfate 90 mcg/actuation 2 puffs inhalation Q6H 30 days PRN 6.7 grams 1RF shortness of breath or wheezing Coding Level of Care Code Est Pt Level 4 (37051) Diagnoses Moderate persistent asthma J45.40 Seasonal allergic rhinitis due to pollen J30.1 Chronic pain of left knee M25.562; G89.29 Chronicity: chronic Chronic pain of right knee M25.561; G89.29 Chronicity: chronic Additional Codes LUDMILA-7 Assessment Billing - LUDMILA-7 Assessment Tool: LUDMILA-7 Assessment 73970 ([id number]) Time Spent (min) 21
== END 2024-04-19 08:30 | disposition home or self-care (01) ==
PROVIDERS: PCP Internal Medicine; Visit Provider Internal Medicine
DX: J45.40 Moderate persistent asthma, uncomplicated (principal); J30.1 Allergic rhinitis due to pollen; M25.562 Pain in left knee; G89.29 Other chronic pain; M25.561 Pain in right knee
CPT/HCPCS: 99214

== ENCOUNTER 2024-04-19 08:42 | Outpatient (REF) | payer OTHER, SELFPAY ==
--- NOTE | ~2024-04-19 | XR_ITS ---
EXAMINATION: XR KNEE, RIGHT XR KNEE, LEFT CLINICAL INFORMATION: Pain in bilateral knees. COMPARISON: 12/19/2020 TECHNIQUE: AP and lateral views of each knee. FINDINGS: RIGHT KNEE: Bone mineralization is normal. Trace joint effusion. Joint spaces are preserved. LEFT KNEE: Bone mineralization is normal. No significant joint effusion. Minimal narrowing of the bilateral medial compartments. XR/XR knee RT 2V IMPRESSION: Trace right joint effusion. No left joint effusion. Minimal narrowing of the bilateral medial compartments.
--- NOTE | ~2024-04-19 | XR_ITS ---
EXAMINATION: XR KNEE, RIGHT XR KNEE, LEFT CLINICAL INFORMATION: Pain in bilateral knees. COMPARISON: 12/19/2020 TECHNIQUE: AP and lateral views of each knee. FINDINGS: RIGHT KNEE: Bone mineralization is normal. Trace joint effusion. Joint spaces are preserved. LEFT KNEE: Bone mineralization is normal. No significant joint effusion. Minimal narrowing of the bilateral medial compartments. XR/XR knee LT 2V IMPRESSION: Trace right joint effusion. No left joint effusion. Minimal narrowing of the bilateral medial compartments.
--- NOTE | 2024-04-19 08:46 | ECG_ITS ---
Test Reason : cp Blood Pressure : / mmHG Vent. Rate : 065 BPM Atrial Rate : 065 BPM P-R Int : 150 ms QRS Dur : 082 ms QT Int : 396 ms P-R-T Axes : 041 003 016 degrees QTc Int : 411 ms Normal sinus rhythm Normal ECG No previous ECGs available Referred By: Shantell Piña Electronically Signed By:ISMAEL KANG
== END 2024-04-19 08:43 | disposition home or self-care (01) ==
LOC: HO.XRAY 08:42
PROVIDERS: PCP Internal Medicine; Visit Provider Internal Medicine
DX: R07.9 Chest pain, unspecified (principal); M25.562 Pain in left knee; M25.561 Pain in right knee
CPT/HCPCS: 73560; 93005

== ENCOUNTER → 2024-04-19 08:46 | Outpatient (BNV) | payer OTHER, SELFPAY | PROVIDERS: PCP Internal Medicine; Visit Provider Internal Medicine | DX: R07.9 Chest pain, unspecified (principal) | CPT/HCPCS: 93010 ==

== ENCOUNTER 2024-05-31 06:25 | Outpatient (REF) | payer OTHER, SELFPAY | END 2024-05-31 06:26 | disposition home or self-care (01) | LOC: HO.HOSX 06:25 | PROVIDERS: Visit Provider Physician Assistant | DX: Z13.89 Encounter for screening for other disorder (principal) ==

== ENCOUNTER 2024-09-20 15:44 | Outpatient (AMB) | payer OTHER, SELFPAY ==
[2024-09-20 15:45] VITALS: BP 120/78; PULSE 57; O2SAT 100; BMI 28.1
--- NOTE | 2024-09-20 15:45 | MHC.PC.OV ---
Vital Signs 09/20/24 15:45 Height 4 ft 11 in Weight 139 lb BMI 28.1 BP 120/78 Blood Pressure Location Lt brachial Position Sitting Pulse 57 Pulse Source Pulse Oximeter Pulse Oximetry (%) 100 Oxygen Delivery Method Room Air Intake Visit Reasons: Annual exam Intake Note: Patient is here today for a physical. Allergies Seasonal Allergies Allergy (Intermediate, Verified 09/20/24 15:58) sneezing, mucus Medication List - Last Reconciled 09/20/24 by Brenda Rdz PA-C albuterol sulfate 90 mcg/actuation 2 puffs inhalation Q6H PRN 30 days cetirizine (All Day Allergy (cetirizine)) 10 mg PO DAILY PRN 30 days priqgcmftkx-dbeltkbum-osxmgala 100-62.5-25 mcg (Trelegy Ellipta) 1 inh inhalation DAILY 28 days ibuprofen 400 mg PO Q8H PRN lidocaine 5% (Lidoderm) 1 patch topical DAILY umeclidinium 62.5 mcg/actuation (Incruse Ellipta) 1 inh inhalation BEDTIME 30 days Tobacco use date assessed: 04/19/24 Dental Screening Dental Screen Date: 09/20/24 Did you have a dental visit in the last 12 months?: Yes Did you have a dental problem in the last 6 months where you did not have access to dental care?: No Was dental information given to patient?: Patient has dentist HPI Annual exam HPI Details 23-year-old female with past medical history of asthma, allergic rhinitis and bilateral knee pain last seen by Dr. Covington march 2024 coming in for annual exam. In review of the notes, patient was seen in [facility] 05/07/2024 for nausea, vomiting and diarrhea workup negative and given Zofran and loperamide. Patient states she uses her albuterol inhaler 1-2 times per week and denies nighttime awakenings. She was given additional inhalers however has not picked these up from the pharmacy yet. She does mentioned the last 2 nights she has been having a full-body rash that starts when she gets home from work and last throughout the night but resolves by morning. She use Benadryl yesterday with good relief. She regularly follows with a bank worker and has not had a routine Pap smear yet. Otherwise has no acute concerns. [facility] Medical History Abdominal pain Overweight (BMI 25.0-29.9) Mild asthma Surgical History No pertinent past surgical history Family History Mother No problems noted. Father No problems noted. Social History Housing: House Alcohol intake: current Alcohol intake frequency: holidays/special occasions only Alcohol type: other Patient Tobacco Use Status: Never used Tobacco e-Cigarette/Vaping Use: Never Used Second Hand Smoke Exposure: No service: No Current occupational status: employed Current occupation: [employer] Current occupational exposures/hazards: No Cognitive needs: No Hearing needs: No Vision needs: No Female Reproductive History Menstrual control method: copper IUCD Total pregnancies: 2 Full term: 2 Questionnaire PHQ-9 Over the last 2 weeks, how often have you been bothered by any of the following problems? 1. Little interest or pleasure in doing things: not at all 2. Feeling down, depressed, or hopeless: not at all 3. Trouble falling or staying asleep, or sleeping too much: not at all 4. Feeling tired or having little energy: not at all 5. Poor appetite or overeating: not at all 6. Feeling bad about yourself - or that you are a failure or have let yourself or your family down: not at all 7. Trouble concentrating on things, such as reading the newspaper or watching television: not at all 8. Moving or speaking so slowly that other people could have noticed. Or the opposite - being so fidgety or restless that you have been moving around a lot more than usual: not at all 9. Thoughts that you would be better off or of hurting yourself in some way: not at all Total score: 0 Depression Screening Interpretation: Negative Depression Screening Done: Yes 24905 - PHQ-9 Billing: Yes Source: Developed by Drs. Pete Begum, Christy Michelle, Mike Cameron and colleagues, with an educational sybil from [employer]. Thrive Questionnaire Date Thrive assessed: 10/30/24 I am a: Patient What is your living situation today?: I have a steady place to live Within the past 12 months, did the food you bought not last and you didn't have the money to get more?: Never true Within the past 12 months, did you worry whether your food would run out before you got money to buy more?: Never true Do you have trouble paying for medicines?: No Do you have trouble getting transportation to medical appointments?: No Do you have trouble paying your heating and electricity bill?: No Do you have trouble taking care of your child, family member or friend?: No Do you have trouble with day-to-day activities such as bathing, preparing meals, shopping, managing finances, etc.?: No Are you currently unemployed and looking for a job?: No Are you interested in more education?: No THRIVE Score: 0 AUDIT C Alcohol Use Questionnaire (AUDIT-C) 1. How often do you have a drink containing alcohol?: Monthly or less 2. How many drinks containing alcohol do you have on a typical day when you are drinking?: 1 or 2 3. How often do you have six or more drinks on one occasion?: Never Total Score: 1 Score Reviewed/Action Taken: No LUDMILA-7 AMB Questionnaire LUDMILA-7 Date LUDMILA - 7 assessed: 09/20/24 Feeling nervous, anxious, or on edge: 0 = Not at all Not being able to stop or control worryin = Not at all Worrying too much about different things: 0 = Not at all Trouble relaxin = Not at all Being so restless that it is hard to sit still: 0 = Not at all Becoming easily annoyed or irritable: 0 = Not at all Feeling afraid as if something awful might happen: 0 = Not at all Total LUDMILA-7 score (0-4 normal; 5-9 mild; 10-14 moderate; 15-21 severe): 0 Source: Developed by Drs. Pete Begum, Christy Michelle, Mike Cameron and colleagues, with an educational sybil from [employer]. LUDMILA-7 Assessment Billing LUDMILA-7 Assessment Tool: LUDMILA-7 Assessment 87123 Review of Systems Const Denies body aches, Denies fatigue, Denies fever(s), Denies frequent falls, Denies headache(s) and Denies weakness Eyes Details: blurred vision with long distance Reports no additional complaints and Denies change in vision ENT Denies dysphagia, Denies dizziness, Denies facial pain, Denies headache(s), Denies nasal congestion and Denies odynophagia Card Denies chest pain, Denies syncope, Denies irregular heart rhythm, Denies leg edema, Denies lightheadedness and Denies dyspnea Resp Denies cough and Denies dyspnea GI Denies abdominal pain, Denies constipation, Denies dysphagia, Denies dyspepsia, Denies diarrhea, Denies nausea, Denies odynophagia and Denies vomiting Denies urinary frequency, Denies dysuria, Denies urinary hesitancy and Denies urinary urgency Musc Details: back pain radiates down the right leg Reports back pain (low back) and Denies myalgias Skin/Breast Reports as per HPI Neuro Denies dizziness, Denies syncope, Denies frequent falls, Denies headache(s) and Denies weakness Psych Reports no additional complaints Endo Denies fatigue Physical exam (Primary Care) Vital Signs: Oxygen Delivery Method Room Air 09/20/24 15:45 BMI Assessment/Plan discussion: High BMI High, discussed plan: lifestyle, weight reduction, dietary and physical activity Tobacco/Smoking Status: Tobacco use Status Tobacco use date assessed 04/19/24 09/20/24 15:47 Patient Tobacco Use Status Never used Tobacco 09/20/24 15:47 e-Cigarette/Vaping Use Never Used 09/20/24 15:47 Depression Screening Interpretation: Negative Thrive Assessment: Date of Thrive Assessment Date Thrive assessed 09/20/24 09/20/24 15:47 Const General: cooperative, healthy appearing, comfortable and no acute distress Orientation/consciousness: patient oriented x3 [facility] Head: Yes normocephalic Ears: hearing grossly normal bilaterally, external ears normal, TM's normal bilaterally and EAC's normal General nose exam: Normal external nose present Face and sinus: Yes normal facial exam and Yes sinuses nontender Mouth: Normal oral and palatal mucosa present and tongue normal Throat: Yes posterior oropharynx normal Eyes General: appearance normal, both eyes and all related structures Conjunctivae: conjunctivae normal Pupils: Equal, round and reactive pupils present EOM: EOMs intact bilaterally and No Nystagmus present Neck Neck: Yes normal visual inspection, Yes full ROM and Yes no lymphadenopathy Chest Chest palpation & inspection: normal inspection of the chest Resp Effort & Inspection: normal respiratory effort Auscultation: clear to auscultation bilaterally, no crackles, no rales, no rhonchi, no wheezes and breath sounds present Cardio Rate: regular rate Rhythm: regular rhythm Peripheral pulses: radial pulses present and dorsalis pedis present GI Inspection: Yes normal to inspection and No Abdominal wall edema Palpation (GI): Soft to palpation, not firm and nontender Auscultation: normal bowel sounds Rectal Exam - Female: deferred General: Yes no CVA tenderness Back/Spine/Pelvis Other: No tenderness to palpation of spine or paraspinous muscles Back: no CVA tenderness Skin General skin exam: no rashes or lesions noted Neuro General: patient oriented x3 Cranial nerves: Yes Equal, round and reactive pupils present, Yes Midline tongue present, Yes Ability to bilaterally elevate shoulders present and No Nystagmus present Gait exam (Neuro): Normal gait present Extrem General: Yes normal to inspection, Yes full ROM, No no pedal edema and No edema Psych Speech and movement: Normal speech and movement present Affect: normal affect Insight: Good insight present (Psych) Judgement: Good judgement present (Psych) Coding Level of Care Code Est Pt Prev Care 18-39y(65584) Diagnoses Moderate persistent asthma J45.40 Seasonal allergic rhinitis due to pollen J30.1 Overweight (BMI 25.0-29.9) E66.3 Annual physical exam Z00.00 Rash R21 Additional Codes LUDMILA-7 Assessment Billing - LUDMILA-7 Assessment Tool: LUDMILA-7 Assessment 80785 ([id number]) Assessment & Plan Assessment & Plan (1) Moderate persistent asthma: Code(s): J45.40 - Moderate persistent asthma, uncomplicated Category: Medical Plan: Asthma currently controlled on present medications. Continue on Trelegy daily and albuterol as needed. Avoid triggers such as allergies. Recent prescription for Trelegy. (2) Seasonal allergic rhinitis due to pollen: Code(s): J30.1 - Allergic rhinitis due to pollen Category: Medical Plan: Referral placed to senior reservations agent advised patient to use cetirizine daily. (3) Overweight (BMI 25.0-29.9): Code(s): E66.3 - Overweight Category: Medical Plan: Healthy diet and regular exercise is encouraged. (4) Annual physical exam: Code(s): Z00.00 - Encounter for general adult medical examination without abnormal findings Category: Medical Plan: Patient is up-to-date on all recommended routine screenings and vaccinations for her age. Blood work is up-to-date march 2024. Follow up in 1 year or sooner if new problems arise. Advised patient to follow up with gynecology for routine Pap smear. Referral placed for eye doctor for annual exams. (5) Rash: Code(s): R21 - Rash and other nonspecific skin eruption Category: Medical Plan: Patient reports rash on bilateral upper extremities and lower extremities as well as abdomen which began 2 nights ago and only occurs when she 1st gets home from work and resolves by morning. She has used Benadryl in Benadryl cream with good relief. Recommend following up with senior reservations agent and using cetirizine daily. Advised patient to follow up if symptoms persist. Plan This note was constructed using voice recognition software. While every effort has been made to ensure accuracy and car checker, still areas may have been included sometimes these areas may affect the content or meeting of the given symptoms. Total time spent caring for the patient today was 30 minutes. This includes time spent before the visit reviewing the chart, time spent during the visit, and time spent after the visit and documentation. Orders: Referrals Allergy & Immunology Referral J30.1 - Allergic rhinitis due to pollen, R21 - Rash and other nonspecific skin eruption Optometry Referral H54.3 - Unqualified visual loss, both eyes Medications: Refilled qjfskdolnfo-xmzfbcifr-acrjwzel 100-62.5-25 mcg (Trelegy Ellipta) 1 inh inhalation DAILY 28 days 28 ea 6RF J45.40 - Moderate persistent asthma, uncomplicated cetirizine (All Day Allergy (cetirizine)) 10 mg PO DAILY 30 days PRN 30 tabs 2RF allergy symptoms J30.1 - Allergic rhinitis due to pollen cetirizine (All Day Allergy (cetirizine)) 10 mg PO DAILY 30 days PRN 30 tabs 2RF allergy symptoms J30.1 - Allergic rhinitis due to pollen
== END 2024-09-20 16:21 | disposition home or self-care (01) ==
LOC: HO.HMCH 15:44
PROVIDERS: PCP Internal Medicine
DX: J45.40 Moderate persistent asthma, uncomplicated (principal); J30.1 Allergic rhinitis due to pollen; E66.3 Overweight; Z00.00 Encounter for general adult medical examination without abnormal findings; R21 Rash and other nonspecific skin eruption

== ENCOUNTER → 2024-09-20 15:44 | Outpatient (BNVA) | payer OTHER, SELFPAY | PROVIDERS: PCP Internal Medicine | DX: Z00.01 Encounter for general adult medical examination with abnormal findings (principal); J45.40 Moderate persistent asthma, uncomplicated; J30.1 Allergic rhinitis due to pollen; E66.3 Overweight; R21 Rash and other nonspecific skin eruption | CPT/HCPCS: 96127; 99395 ==

== ENCOUNTER 2025-01-09 14:26 | Outpatient (AMB) | payer OTHER, SELFPAY ==
--- NOTE | 2025-01-09 14:32 | A.OFFPC_ITS ---
Vital Signs 01/09/25 14:34 Height 4 ft 11 in Weight 142 lb 2 oz BMI 28.7 BP 112/70 Blood Pressure Location Lt brachial Position Sitting Pulse 59 Pulse Source Pulse Oximeter Temp 96.6 F L Temp Source Temporal Artery Scan Pulse Oximetry (%) 99 Oxygen Delivery Method Room Air Intake Visit Reasons: Flu Intake Note: Patient is here to follow up on Asthma. Human Factors Advisor Lead Required: No Customer Quality Specialist: Not Required per policy Accompanied by: Self / Same As Patient Allergies Seasonal Allergies Allergy (Intermediate, Verified 01/09/25 14:34) sneezing, mucus Medication List - Last Reconciled 01/09/25 by Brenda Rdz PA-C albuterol sulfate 90 mcg/actuation 2 puffs inhalation Q6H PRN 30 days cetirizine (All Day Allergy (cetirizine)) 10 mg PO DAILY PRN 30 days xwfdxybkfqp-chmxnmpkh-skwxfudd 100-62.5-25 mcg (Trelegy Ellipta) 1 inh inhalation DAILY 28 days lidocaine 5% (Lidoderm) 1 patch topical DAILY Tobacco use date assessed: 01/09/25 Dental Screening Dental Screen Date: 01/09/25 Did you have a dental visit in the last 12 months?: Yes Did you have a dental problem in the last 6 months where you did not have access to dental care?: No Was dental information given to patient?: Patient has dentist HPI Flu HPI Details 24-year-old female with past medical his tory of asthma, allergic rhinitis and bilateral knee pain last seen 08/2024 coming in for acute problem. Presenting with asthma management and evaluation. Recurrent asthma symptoms for about one month. Current medication regimen includes Ventolin used twice daily and Trelegy administered once daily. Worsening symptoms related to second-hand tobacco smoke exposure at home. Nighttime asthma symptoms include chest tightness and coughing, causing sleep disturbances. [facility] Medical History Abdominal pain Overweight (BMI 25.0-29.9) Mild asthma Surgical History No pertinent past surgical history Family History Mother No problems noted. Father No problems noted. Social History Housing: House Alcohol intake: current Alcohol intake frequency: holidays/special occasions only Alcohol type: other Patient Tobacco Use Status: Never used Tobacco e-Cigarette/Vaping Use: Never Used Second Hand Smoke Exposure: No service: No Current occupational status: employed Current occupation: [employer] Current occupational exposures/hazards: No Cognitive needs: No Hearing needs: No Vision needs: No Questionnaire PHQ-9 Over the last 2 weeks, how often have you been bothered by any of the following problems? 1. Little interest or pleasure in doing things: not at all 2. Feeling down, depressed, or hopeless: not at all 3. Trouble falling or staying asleep, or sleeping too much: not at all 4. Feeling tired or having little energy: not at all 5. Poor appetite or overeating: not at all 6. Feeling bad about yourself - or that you are a failure or have let yourself or your family down: not at all 7. Trouble concentrating on things, such as reading the newspaper or watching television: not at all 8. Moving or speaking so slowly that other people could have noticed. Or the opposite - being so fidgety or restless that you have been moving around a lot more than usual: not at all 9. Thoughts that you would be better off or of hurting yourself in some way: not at all Total score: 0 Depression Screening Interpretation: Negative Depression Screening Done: Yes Source: Developed by Drs. Pete Begum, Christy Michelle, Mike Cameron and colleagues, with an educational sybil from [employer]. Thrive Questionnaire Date Thrive assessed: 01/09/25 AUDIT C Alcohol Use Questionnaire (AUDIT-C) 1. How often do you have a drink containing alcohol?: Monthly or less 2. How many drinks containing alcohol do you have on a typical day when you are drinking?: 1 or 2 Total Score: 1 LUDMILA-7 AMB Questionnaire LUDMILA-7 Date LUDMILA - 7 assessed: 01/09/25 Feeling nervous, anxious, or on edge: 0 = Not at all Not being able to stop or control worryin = Not at all Worrying too much about different things: 0 = Not at all Trouble relaxin = Not at all Being so restless that it is hard to sit still: 0 = Not at all Becoming easily annoyed or irritable: 0 = Not at all Feeling afraid as if something awful might happen: 0 = Not at all Total LUDMILA-7 score (0-4 normal; 5-9 mild; 10-14 moderate; 15-21 severe): 0 Source: Developed by Drs. Pete Begum, Christy Michelle, Mike Cameron and colleagues, with an educational sybil from [employer]. Review of Systems Const Denies body aches, Denies chills, Denies fever(s), Denies headache(s) and Denies poor appetite Eyes Reports no additional complaints ENT Denies dizziness and Denies headache(s) Card Denies chest pain, Denies lightheadedness and Denies dyspnea Resp Denies cough and Denies dyspnea GI Reports no additional complaints Reports no additional complaints Musc Reports no additional complaints and Denies abnormal gait Skin/Breast Reports system reviewed and no additional complaints, except as documented Neuro Denies abnormal gait, Denies dizziness and Denies headache(s) Psych Reports no additional complaints Physical exam (Primary Care) Vital Signs: Last Vital Signs Temp 96.6 F L 01/09/25 14:34 Pulse 59 01/09/25 14:34 BP 112/70 01/09/25 14:34 Pulse Ox 99 01/09/25 14:34 Oxygen Delivery Method Room Air 01/09/25 14:34 BMI result Body Mass Index 28.7 Tobacco/Smoking Status: Tobacco use Status Tobacco use date assessed 01/09/25 01/09/25 14:39 Patient Tobacco Use Status Never used Tobacco 01/09/25 14:39 e-Cigarette/Vaping Use Never Used 01/09/25 14:39 PHQ-9: PHQ-9 Score PHQ-9: Total score 0 01/09/25 14:39 Depression Screening Interpretation: Negative Thrive Assessment: Date of Thrive Assessment Date Thrive assessed 01/09/25 01/09/25 14:39 Const General: cooperative, healthy appearing, comfortable and no acute distress Orientation/consciousness: patient oriented x3 [facility]EN[facility] Head: Yes normocephalic Ears: hearing grossly normal bilaterally General nose exam: Normal external nose present Eyes General: appearance normal, both eyes and all related structures Conjunctivae: conjunctivae normal Neck Neck: Yes full ROM and Yes no lymphadenopathy Resp Effort & Inspection: normal respiratory effort Auscultation: clear to auscultation bilaterally, no crackles, no rales, no rhonchi and no wheezes Cardio Rate: regular rate Rhythm: regular rhythm Skin General skin exam: no rashes or lesions noted Neuro General: patient oriented x3 Gait exam (Neuro): Normal gait present Extrem General: Yes normal to inspection, Yes full ROM and No edema Psych Affect: normal affect Attitude: cooperative Insight: Good insight present (Psych) Judgement: Good judgement present (Psych) Coding Level of Care Code Est Pt Level 3 (76760) Diagnoses Moderate persistent asthma J45.40 Seasonal allergic rhinitis due to pollen J30.1 Overweight (BMI 25.0-29.9) E66.3 Assessment & Plan Assessment & Plan (1) Moderate persistent asthma: Code(s): J45.40 - Moderate persistent asthma, uncomplicated Category: Medical Plan: On exam lungs are clear to auscultation patient does not appear to be in acute e xacerbation at this time. I discussed the patient's asthma management, focusing on the addition of montelukast, especially given exposure to smoke and nighttime symptoms. Adjustments in her current inhaler regimen were considered to mitigate asthma attacks. Referrals to specialists, including an sports physiologist and advisory internship, are necessary for comprehensive assessment and management due to resumption of insurance coverage. The follow-up is set for one month to evaluate the treatment response, although early visits are warranted if symptoms worsen. (2) Seasonal allergic rhinitis due to pollen: Code(s): J30.1 - Allergic rhinitis due to pollen Category: Medical Plan: Referral placed to sports physiologist. (3) Overweight (BMI 25.0-29.9): Code(s): E66.3 - Overweight Category: Medical Plan: Healthy diet and regular exercise is encouraged. Plan Patient was informed and verbally consented to the use of an ambient scribe for clinic note documentation during this visit. This note was constructed using voice recognition software. While every effort has been made to ensure accuracy and research biostatistician, still areas may have been included sometimes these areas may affect the content or meeting of the given symptoms. Total time spent caring for the patient today was 20 minutes. This includes time spent before the visit reviewing the chart, time spent during the visit, and time spent after the visit and documentation. Orders: Referrals Pulmonology Referral J45.40 - Moderate persistent asthma, uncomplicated Medications: New montelukast 10 mg PO BEDTIME 90 tabs 0RF Refilled albuterol sulfate 90 mcg/actuation 2 puffs inhalation Q6H 30 days PRN 6.7 grams 1RF shortness of breath or wheezing
[2025-01-09 14:34] VITALS: BP 112/70; PULSE 59; TEMP 35.9; O2SAT 99; BMI 28.7
--- OUTSIDE RECORDS SUMMARY | 2025-01-09 15:26 | XMS_ITS | Clinical Summary ---
Author Organization [employer] Address [address] [place] [address] Care Team Providers Care Surveillance Manager Name Role Phone Unavailable Primary Care Provider Unavailabl e Social History Tobacco Use Types Packs/Day Years Used Date Smoking Tobacco: Never Assessed Comments Unknown Sex and Gender Information Value Date Recorded Sex Assigned at Female 09/21/2022 10:25 AM EDT Legal Sex Female 10:25 AM EDT Gender Identity Choose not to disclose 10:25 AM EDT Sexual Orientation Choose not to disclose 2021 10:25 AM EDT Last Filed Vital Signs Vital Sign Reading Time Taken Comments Blood Pressure 107/73 12/15/2021 12:01 AM EST Pulse 81 12/15/2021 12:01 AM EST Temperature - - Respiratory Rate - - Oxygen Saturation - - Inhaled Oxygen Concentration - - Weight 64.6 kg (142 lb 6.4 oz) 12/15/2021 12:01 AM EST Height 151.1 cm (4' 11.5 ) 12/15/2021 12:[address] Body Mass Index 28.28 12/15/2021 12:01 AM EST Plan of Treatment Health Maintenance Due Date Last Done Comments Depression Screening 2000 Alcohol/Substance Use Screening 2012 Tobacco Screening 2012 Family Planning (PISQ) 2015 Pap Smear 2021 DTaP/Tdap/Td Vaccines (7 - Td or Tdap) 08/15/2023 08/15/2013, 12/11/2004, 05/08/2003, Additional history exists COVID-19 Vaccine ( season) 2024 Influenza Vaccine (#1) 2024 12/03/2014, 2012 Zoster Vaccines (1 of 2) 2050 RSV Patients and Patients Aged 60 years or older (1 - 1-dose 75+ series) 2075 Pneumococcal Vaccine: Pediatrics (0 to 5 Years) and At-Risk Patients (6 to 49) Years) Aged Out 01/06/2001 No longer eligible based on patient's age to complete this topic HIB Vaccines Aged Out 05/27/2001, 02/20, 01/06/2001 No longer eligible based on patient's age to complete this topic Hepatitis B Vaccines Completed 05/27/2001, 03/02/2001, 01/06/2001 IPV Vaccines Completed 12/11/2004, 04/2001, 03/02/2001, Additional history exists Meningococcal Vaccine Aged Out 02/06/2014 No karen blanco eligible based on patient's age to complete this topic HPV Vaccines Completed 12/03/2014, 03/23, 02/06/2014 Hepatitis A Vaccines Completed 05/18/2016, 12/03/19 15 RSV under 20 months Aged Out No longe r eligible based on patient's age to complete this topic Rotavirus Vaccines Aged Out No longer eligible based on patient's age to complete this topic
--- OUTSIDE RECORDS SUMMARY | 2025-01-09 15:26 | XMS_ITS | Continuity of Care Document ---
Author Organization [facility] Address [address] [place] [address]- Care Team Providers Care Manager Customer Service Name Role Phone Adria Piña MD, Shantell Noriega Primary Care Physician [phone] Encounter [facility] Date(s): 11/20/24 - 12/20/[address] [address] Encounter Type: Triage Allergies, Adverse Reactions, Alerts No Known Allergies Immunizations Given and Recorded Vaccine Date Status Refusal Reason Measles/Mumps/Rubella Virus Vaccine 05/02/23 Given tetanus/diphtheria/pertussis, acel(Tdap) 03/02/23 Given tetanus/diphtheria/pertussis, acel(Tdap) 05/16/18 Given influenza virus vaccine, inactivated 10/01/22 Give n influenza virus vaccine, inactivated 09/26/18 Give n SARS-CoV-2 (COVID-19) mRNA BNT-162b2 vac 09/01/21 Recorded SARS-CoV-2 (COVID-19) mRNA BNT-162b2 vac 08/07/21 Recorded Medications ibuprofen 400 mg oral tablet 400 mg, 1, tablet, By Mouth, Every 6 hours, # 30 tablet, Refills 0, Tot. Refills 0, Maintenance, 10/18/23 9:16:00 AM EST, Route to Pharmacy Electronically, [facility]/pharmacy #[id number], Partial fill upon patient request if the prescription is for a schedule II opioid drug., 150, cm, 06/09/23 13:15:00 EDT, Height, 69.4, kg, 06/10/23 5:54:00 EDT, Dry Weight Start Date: 10/18/23 Status: Ordered Quantity: 30.0 Unit: tablet Repeat number: 1 Tylenol 325 mg oral capsule 2 capsule = 650 mg, By Mouth, Every 6 hours, PRN as needed for fever, # 60 capsule, 0 Refills, Maintenance, 10/18/23 9:17:00 AM EST, Capsule, [facility]/pharmacy #[id number], Partial fill upon patient request if the prescription is for a schedule II opioid drug., 150, cm, 06/09/23 13:15:00 EDT, Height, 69.4, kg, 05/01/23 5:54:00 EDT, Dry Weight Start Date: 10/18/23 Status: Ordered Quantity: 60.0 Unit: capsule Repeat number: 1 Problem List Condition Confirmation Course Effective Dates Status H ealth Status Informant Asthma Confirmed Active Gastroesophageal reflux disease Confirmed Active History of prior with IUGR Confirmed Active History of gestational diabetes Confirmed Active Uses Jordanian as primary spoken language Confirmed Active Mild intermittent asthma Confirmed Active History of prior with small for gestational age Confirmed Active Rubella non-immune Confirmed Active Positive urine drug screen Confirmed Active Social History Social History Type Response Smoking Status Never (less than 100 in lifetime) entered on: 09/15/22 Sex Sex Representation Female (finding) Patient Care team information Care Team Personnel Name: Adria Piña MD , Shantell Noriega Position: Reference Physician Member Role: PCP Address: [address] [place] [address] [address] [place] [address] Telecom: Care Team Related Persons Name: PASCALE ARMENDARIZ Name: SARAH ARMENDARIZ Name: SUZANNA VARELA Insurance Providers Guarantor name: ASYA VARELA Health Plan Information #: 1 Payer: [employer] Member Number: NA Policy Number: NA Group Number: NA
--- OUTSIDE RECORDS SUMMARY | 2025-01-09 15:26 | XMS_ITS | Clinical Summary ---
Author Organization [facility] ity Address [address] [place] [address] Care Team Providers Care Financial Administrative Assistant Name Role Phone Unavailable Primary Care Provider Unavailabl e Social History Tobacco Use Types Packs/Day Years Used Date Smoking Tobacco: Never Assessed Comments Unknown Sex and Gender Information Value Date Recorded Sex Assigned at Not on file Legal Sex Female 12:40 PM EST Gender Identity Not on file Sexual Orientation Not on file Plan of Treatment Health Maintenance Due Date Last Done Comments Gonorrhea/Chlamydia Screening 2000 HPV Vaccines (1 - 3-dose series) 2015 DTaP,Tdap,and Td Vaccines (1 - Tdap) 2019 Hepatitis B Vaccines (1 of 3 - 19+ 3-dose series) 2019 Cervical Cancer Screening: P ap Smear 2021 Depression Screening 10/20/2022 HIV Screening 10/20/2022 Hepatitis C Screening 10/20/2022 Social Influencers of Health Screening 10/20/2022 COVID-19 Vaccine (2023-2 5 season) 2024 Influenza Vaccine (#1) 2024 HIB Vaccines Aged Out No longer eligi ble based on patient's age to complete this topic Hepatitis A Vaccines Aged Out No long er eligible based on patient's age to complete this topic IPV Vaccines Aged Out No longer eligi ble based on patient's age to complete this topic MMR Vaccines Aged Out No longer eligi ble based on patient's age to complete this topic Meningococcal ACWY Vaccine Aged Out N o longer eligible based on patient's age to complete this topic Meningococcal B Vacine Aged Out No lo nger eligible based on patient's age to complete this topic Pneumococcal Vaccine: Pediat rics (0 to 5 Years) and At-Risk Patients (6 to 64 Years) Aged Out No longer eligible b ased on patient's age to complete this topic RSV Immunization Patients Un jorge 20 months Aged Out No longer eligible b ased on patient's age to complete this topic Varicella Vaccines Aged Out No longer eligible based on patient's age to complete this topic
== END 2025-01-09 15:03 | disposition home or self-care (01) ==
PROVIDERS: PCP Internal Medicine
DX: J45.40 Moderate persistent asthma, uncomplicated (principal); J30.1 Allergic rhinitis due to pollen; E66.3 Overweight

== ENCOUNTER → 2025-01-09 14:26 | Outpatient (BNVA) | payer OTHER, SELFPAY | PROVIDERS: PCP Internal Medicine | DX: J45.40 Moderate persistent asthma, uncomplicated (principal); J30.1 Allergic rhinitis due to pollen; E66.3 Overweight | CPT/HCPCS: 99212 ==

== ENCOUNTER 2025-01-26 16:23 | Outpatient (AMB) | payer OTHER, SELFPAY ==
[2025-01-26 16:48] VITALS: BP 122/72; PULSE 86; RESP 20; TEMP 36.6; O2SAT 98; BMI 27.9
--- NOTE | 2025-01-26 16:48 | MHC.PC.OV ---
Vital Signs 01/26/25 16:48 Height 4 ft 11 in Weight 138 lb BMI 27.9 BP 122/72 Blood Pressure Location Lt brachial Position Sitting Respiration 20 Pulse 86 Pulse Source Pulse Oximeter Temp 97.9 F Temp Source Oral Pulse Oximetry (%) 98 Oxygen Delivery Method Room Air Intake Visit Reasons: presistent cough x 2 months Drug Enforcement Administration Agent Required: No Accompanied by: Self / Same As Patient Allergies Seasonal Allergies Allergy (Intermediate, Verified 01/26/25 16:49) sneezing, mucus Tobacco use date assessed: 01/09/25 Dental Screening Dental Screen Date: 01/09/25 HPI HPI Comments History of Present Illness Details 24 y/o female patient who presents to the clinic for the same day appointment. Pt c/o Dry cough for 2 months. Pt also c/o Nasal/sinus congestion for 2 months. She saw an Carry Out Clerk in the past and was informed that she was allergic to Pollen. She is Asthmatic and currently uses Trelegy, Montelukast and Albuterol rescue inhaler. She was seen here recently for similar issue and was started on Montelukast. She does have an upcoming appointment with Pulmonology in 02/12/25. [facility] Medical History (Updated 01/26/25 @ 17:08 by Addie Pressley NP) Allergic rhinitis Cough Abdominal pain Overweight (BMI 25.0-29.9) Mild asthma Surgical History No pertinent past surgical history Family History Mother No problems noted. Father No problems noted. 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 Pete L. Christy Begum, Mike Cameron and colleagues, with an educational sybil from [employer]. Review of Systems Const All systems reviewed & are unremarkable except as noted in HPI and below Physical exam (Primary Care) Vital Signs: Last Vital Signs Temp 97.9 F 01/26/25 16:48 Pulse 86 01/26/25 16:48 Resp 20 01/26/25 16:48 BP 122/72 01/26/25 16:48 Pulse Ox 98 01/26/25 16:48 Oxygen Delivery Method Room Air 01/26/25 16:48 BMI result Body Mass Index 27.9 Tobacco/Smoking Status: Tobacco use Status Tobacco use date assessed 01/09/25 01/26/25 16:53 Patient Tobacco Use Status Never used Tobacco 01/26/25 16:55 e-Cigarette/Vaping Use Never Used 01/26/25 16:55 Thrive Assessment: Date of Thrive Assessment Date Thrive assessed 01/09/25 01/26/25 16:53 Const General: cooperative and no acute distress Orientation/consciousness: patient oriented x3 HENMT Head: Yes normocephalic Ears: external ears normal and TM abnormal bulging and with fluid behind the TM bilateral General nose exam: Abnormal mucous membranes and turbinates present boggy and erythematous Face and sinus: Yes sinus tenderness Mouth: moist mucous membranes Throat: Yes uvula midline Resp Effort & Inspection: normal respiratory effort and able to speak in complete sentences Auscultation: clear to auscultation bilaterally, no crackles, no rales, no rhonchi and no wheezes Cardio Heart sounds: S1 normal heart sound present and S2 normal heart sound present Neuro General: patient oriented x3 Coding Level of Care Code Est Pt Level 4 (82414) Diagnoses Subacute cough R05.2 Cough type: subacute Seasonal allergic rhinitis due to other allergic trigger J30.89 Allergic rhinitis trigger: other Allergic rhinitis seasonality: seasonal Time Spent (min) 20 Assessment & Plan Assessment & Plan (1) Cough: Code(s): R05.9 - Cough, unspecified Category: Medical Qualifiers: Cough type: subacute Qualified Code(s): R05.2 - Subacute cough Plan: Ordered Benzonatate BID OTC cough medicine F/U with Pulmonology as scheduled. (2) Allergic rhinitis: Code(s): J30.9 - Allergic rhinitis, unspecified Category: Medical Qualifiers: Allergic rhinitis trigger: other Allergic rhinitis seasonality: seasonal Qualified Code(s): J30.89 - Other allergic rhinitis Plan: Ordered Cetirizine BID Ordered Flonase nasal [place] Medications: New fluticasone furoate 27.5 mcg/actuation (Flonase Sensimist) into each nostril 1 spray intranasal DAILY 27.3 mL 0RF J30.89 - Other allergic rhinitis benzonatate 200 mg (2 x 100 mg) PO BID 30 caps 0RF cough R05.2 - Subacute cough Changed From cetirizine (All Day Allergy (cetirizine)) 10 mg PO DAILY 30 days PRN 30 tabs 2RF allergy symptoms J30.89 - Other allergic rhinitis To cetirizine (All Day Allergy (cetirizine)) 10 mg PO DAILY PRN 90 tabs 0RF allergy symptoms J30.89 - Other allergic rhinitis
--- OUTSIDE RECORDS SUMMARY | 2025-01-26 17:28 | XMS_ITS | Clinical Summary ---
Author Organization [employer] Address [address] [place] [address] Care Team Providers Care Flame Cutting Supervisor Name Role Phone Unavailable Primary Care Provider [...]
--- OUTSIDE RECORDS SUMMARY | 2025-01-26 17:28 | XMS_ITS | Clinical Summary ---
Author Organization [facility] ity Address [address] [place] [address] Care Team Providers Care Print And Pattern Designer Name Role Phone Unavailable Primary Care Provider [...]
== END 2025-01-26 17:12 | disposition home or self-care (01) ==
PROVIDERS: PCP Internal Medicine; Visit Provider Nurse Practitioner Family
DX: R05.2 Subacute cough (principal); J30.89 Other allergic rhinitis

== ENCOUNTER → 2025-01-26 16:23 | Outpatient (BNVA) | payer OTHER, SELFPAY | PROVIDERS: PCP Internal Medicine; Visit Provider Nurse Practitioner Family | DX: R05.2 Subacute cough (principal); J30.89 Other allergic rhinitis | CPT/HCPCS: 99212 ==

== ENCOUNTER 2025-02-08 14:21 | Outpatient (AMB) | payer OTHER, SELFPAY ==
[2025-02-08 14:24] VITALS: BP 110/66; PULSE 102; O2SAT 97; BMI 28.5
--- NOTE | 2025-02-08 14:24 | A.OFFPC_ITS ---
Vital Signs 02/08/25 14:24 Height 4 ft 11 in Weight 141 lb BMI 28.5 BP 110/66 Blood Pressure Location Lt brachial Position Sitting Pulse 102 H Pulse Source Pulse Oximeter Pulse Oximetry (%) 97 Oxygen Delivery Method Room Air Intake Visit Reasons: f/u asthma Process Development Engineer Required: No Accompanied by: Self / Same As Patient Allergies Seasonal Allergies Allergy (Intermediate, Verified 02/08/25 14:53) sneezing, mucus Medication List - Last Reconciled 02/08/25 by Brenda Rdz PA-C albuterol sulfate 90 mcg/actuation 2 puffs inhalation Q6H PRN 30 days benzonatate 200 mg (2 x 100 mg) PO BID cetirizine (All Day Allergy (cetirizine)) 10 mg PO DAILY PRN fluticasone furoate 27.5 mcg/actuation (Flonase Sensimist) 1 spray intranasal DAILY rpaerhmntpj-ybtphxphy-poawcwfy 100-62.5-25 mcg (Trelegy Ellipta) 1 inh inhalation DAILY 28 days lidocaine 5% (Lidoderm) 1 patch topical DAILY montelukast 10 mg PO BEDTIME Tobacco use date assessed: 02/08/25 Dental Screening Dental Screen Date: 02/08/25 Did you have a dental visit in the last 12 months?: Yes Did you have a dental problem in the last 6 months where you did not have access to dental care?: No Was dental information given to patient?: Patient has dentist HPI f/u asthma HPI Details 24-year-old female with past medical his tory of asthma, allergic rhinitis in bilateral knee pain last seen 12/2024 coming in for follow up on asthma. In review of the notes, patient was seen in walk-in clinic 01/26/2025 for allergic rhinitis advised cetirizine b.i.d. and Flonase. The patient is a 24-year-old female presenting with a chronic sore throat. The condition has been ongoing with flare-ups for several months, affecting swallowing without typical sore throat symptoms. Episodes last about two weeks and the pain, though relieved temporarily by ibuprofen, tends to worsen at night and at rest. Throat swabs have been negative for infection. Swelling is noted primarily on the left tonsil. The patient is concurrently managing poorly controlled asthma, with plans to consult a project systems engineer shortly. [facility] Medical History Allergic rhinitis Cough Abdominal pain Overweight (BMI 25.0-29.9) Mild asthma Surgical History No pertinent past surgical history Family History Mother No problems noted. Father No problems noted. 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 1. Little interest or pleasure in doing things: not at all 2. Feeling down, depressed, or hopeless: not at all 3. Trouble falling or staying asleep, or sleeping too much: not at all 4. Feeling tired or having little energy: not at all 5. Poor appetite or overeating: not at all 6. Feeling bad about yourself - or that you are a failure or have let yourself or your family down: not at all 7. Trouble concentrating on things, such as reading the newspaper or watching television: not at all 8. Moving or speaking so slowly that other people could have noticed. Or the opposite - being so fidgety or restless that you have been moving around a lot more than usual: not at all 9. Thoughts that you would be better off or of hurting yourself in some way: not at all Total score: 0 Depression Screening Interpretation: Negative Depression Screening Done: Yes Source: Developed by Drs. Pete Begum, Christy Michelle, Mike Cameron and colleagues, with an educational sybil from [employer]. Thrive Questionnaire Date Thrive assessed: 02/08/25 I am a: Patient What is your living situation today?: I have a steady place to live Within the past 12 months, did the food you bought not last and you didn't have the money to get more?: Never true Within the past 12 months, did you worry whether your food would run out before you got money to buy more?: Never true Do you have trouble paying for medicines?: No Do you have trouble getting transportation to medical appointments?: No Do you have trouble paying your heating and electricity bill?: No Do you have trouble taking care of your child, family member or friend?: No Do you have trouble with day-to-day activities such as bathing, preparing meals, shopping, managing finances, etc.?: No Are you currently unemployed and looking for a job?: No Are you interested in more education?: No Please select the resources that you would like help with: None Currently or been in a relationship where the following occur: No concerns reported THRIVE Score: 0 AUDIT C Alcohol Use Questionnaire (AUDIT-C) 1. How often do you have a drink containing alcohol?: Monthly or less 2. How many drinks containing alcohol do you have on a typical day when you are drinking?: 1 or 2 3. How often do you have six or more drinks on one occasion?: Never Total Score: 1 LUDMILA-7 AMB Questionnaire LUDMILA-7 Date LUDMILA - 7 assessed: 02/08/25 Feeling nervous, anxious, or on edge: 0 = Not at all Not being able to stop or control worryin = Not at all Worrying too much about different things: 0 = Not at all Trouble relaxin = Not at all Being so restless that it is hard to sit still: 0 = Not at all Becoming easily annoyed or irritable: 0 = Not at all Feeling afraid as if something awful might happen: 0 = Not at all Total LUDMILA-7 score (0-4 normal; 5-9 mild; 10-14 moderate; 15-21 severe): 0 Source: Developed by Drs. Pete Begum, Christy Michelle, Mike Cameron and colleagues, with an educational sybil from [employer]. Review of Systems Const Denies body aches, Denies chills, Denies fever(s), Denies headache(s) and Denies poor appetite Eyes Reports no additional complaints ENT Denies dysphagia, Denies dizziness, Denies headache(s) and Denies odynophagia Card Denies chest pain, Denies syncope, Denies edema, Denies irregular heart rhythm, Denies lightheadedness and Denies dyspnea Resp Denies cough and Denies dyspnea GI Denies abdominal pain, Denies constipation, Denies dysphagia, Denies diarrhea, Denies nausea, Denies odynophagia and Denies vomiting Reports no additional complaints Musc Reports no additional complaints and Denies abnormal gait Skin/Breast Reports system reviewed and no additional complaints, except as documented Neuro Denies abnormal gait, Denies dizziness, Denies syncope and Denies headache(s) Psych Reports no additional complaints Physical exam (Primary Care) Vital Signs: Last Vital Signs Pulse 102 H 02/08/25 14:24 BP 110/66 02/08/25 14:24 Pulse Ox 97 02/08/25 14:24 Oxygen Delivery Method Room Air 02/08/25 14:24 BMI result Body Mass Index 28.5 Tobacco/Smoking Status: Tobacco use Status Tobacco use date assessed 02/08/25 02/08/25 14:37 Patient Tobacco Use Status Never used Tobacco 02/08/25 14:37 e-Cigarette/Vaping Use Never Used 02/08/25 14:37 PHQ-9: PHQ-9 Score PHQ-9: Total score 0 02/08/25 14:37 Depression Screening Interpretation: Negative Thrive Assessment: Date of Thrive Assessment Date Thrive assessed 02/08/25 02/08/25 14:37 Currently or been in a relationship where the following occur: No concerns reported Const General: cooperative, healthy appearing, comfortable and no acute distress Orientation/consciousness: patient oriented x3 HENMT Head: Yes normocephalic Ears: hearing grossly normal bilaterally, TM's normal bilaterally and EAC's normal General nose exam: Normal external nose present Throat: Yes posterior oropharynx normal, Yes uvula midline, Yes abnormal tonsil (2+ tonsil on the left and normal tonsil on the right ), Yes postnasal drainage and No cobblestoning Eyes General: appearance normal, both eyes and all related structures Conjunctivae: conjunctivae normal Neck Neck: Yes full ROM and Yes no lymphadenopathy Resp Effort & Inspection: normal respiratory effort Auscultation: clear to auscultation bilaterally, no crackles, no rales, no rhonchi and no wheezes Cardio Rate: regular rate Rhythm: regular rhythm Skin General skin exam: no rashes or lesions noted Neuro General: patient oriented x3 Gait exam (Neuro): Normal gait present Extrem General: Yes normal to inspection, Yes full ROM and No edema Psych Affect: normal affect Attitude: cooperative Insight: Good insight present (Psych) Judgement: Good judgement present (Psych) Coding Level of Care Code Est Pt Level 3 (50998) Diagnoses Seasonal allergic rhinitis due to other allergic trigger J30.89 Allergic rhinitis trigger: other Allergic rhinitis seasonality: seasonal Overweight (BMI 25.0-29.9) E66.3 Mild asthma J45.909 Sore throat J02.9 Enlarged tonsils J35.1 Assessment & Plan Assessment & Plan (1) Allergic rhinitis: Code(s): J30.9 - Allergic rhinitis, unspecified Category: Medical Qualifiers: Allergic rhinitis trigger: other Allergic rhinitis seasonality: seasonal Qualified Code(s): J30.89 - Other allergic rhinitis Plan: Advised patient to continue using Flonase and wslb-sza-oanrhid Zyrtec. (2) Overweight (BMI 25.0-29.9): Code(s): E66.3 - Overweight Category: Medical Plan: Healthy diet and regular exercise is encouraged. (3) Mild asthma: Code(s): J45.909 - Unspecified asthma, uncomplicated Category: Medical Plan: Asthma currently controlled on present medications. Continue on Trelegy Ellipta, montelukast and albuterol as needed.. Avoid triggers such as allergies. (4) Sore throat: Code(s): J02.9 - Acute pharyngitis, unspecified Category: Medical Plan: The sore throat with noted tonsillar enlargement on one side is concerning for potential chronic tonsillitis or tonsillar hypertrophy. Referral to an ENT specialist is recommended for thorough evaluation and possible diagnostic imaging or interventions. Immediate persistent or worsening symptoms were advised to prompt urgent care. Sore throat is likely allergic in nature recommend using Flonase and zups-ntj-upiqwyp allergy medication. Exam and history is reassuring. Plan to obtain throat cultureto rule out infectious cause (5) Enlarged tonsils: Code(s): J35.1 - Hypertrophy of tonsils Category: Medical Plan: See plan for sore throat Plan This note was constructed using voice recognition software. While every effort has been made to ensure accuracy and livestock trucker, still areas may have been included sometimes these areas may affect the content or meeting of the given symptoms. Total time spent caring for the patient today was 20 minutes. This includes time spent before the visit reviewing the chart, time spent during the visit, and time spent after the visit and documentation. Patient was informed and verbally consented to the use of an ambient scribe for clinic note documentation during this visit. Orders: Orders Throat Culture Today J35.1 - Hypertrophy of tonsils Referrals Ear/Nose/Throat Referral J02.9 - Acute pharyngitis, unspecified, J35.1 - Hypertrophy of tonsils Medications: Refilled dzdyyeaahbk-bcqnytywk-tozkfwfo 100-62.5-25 mcg (Trelegy Ellipta) 1 inh inhalation DAILY 28 days 28 ea 6RF J45.40 - Moderate persistent asthma, uncomplicated
--- OUTSIDE RECORDS SUMMARY | 2025-02-08 16:59 | XMS_ITS | Continuity of Care Document ---
Author Organization [facility] Address [address] [place] [address]- Care Team Providers Care Voltage Inspector Name Role Phone Adria Piña MD, Shantell Noriega Primary Care Physician Encounter [facility] Date(s): 12/29/24 - 01/28/[address] [address] Attending Physician: AdmtrNathen Admitting Physician: AdmtrNathen Referring Physician: Admtr, Ar8 Encounter Type: Triage Allergies, Adverse Reactions, Alerts [...] 9:16:00 AM EST, Route to Pharmacy Electronically, [facility]/pharmacy #[id number], Partial fill upon patient request if [...] History of gestational diabetes Confirmed Active Uses Portuguese as primary spoken language Confirmed Active Mild [...] Position: Reference Physician Member Role: PCP Address: [address] [place] [address] [address] [place] [address]- Telecom: Care Team Related Persons Name: PASCALE ARMENDARIZ Name: SARAH ARMENDARIZ Name: SUZANNA VARELA Insurance Providers Guarantor name: ASYA VARELA Health Plan Information #: 1 Payer: [employer] Member Number: NA Policy Number: NA Group Number: NA
--- OUTSIDE RECORDS SUMMARY | 2025-02-08 16:59 | XMS_ITS | Clinical Summary ---
Author Organization [employer] Address [address] [address] [place] [address] Care Team Providers Care Fire Safety Director Name Role Phone Unavailable Primary Care Provider [...]
--- OUTSIDE RECORDS SUMMARY | 2025-02-08 16:59 | XMS_ITS | Clinical Summary ---
Author Organization [facility] ity Address [address] [place] [address] Care Team Providers Care A P Supervisor Name Role Phone Unavailable Primary Care [...]
--- OUTSIDE RECORDS SUMMARY | 2025-02-08 16:59 | XMS_ITS | Continuity of Care Document ---
Author Organization [facility] Address [address] [place] [id number]- Care Team Providers Care Circulation Man Name Role Phone Adria Piña MD, Shantell Noriega Primary Care Physician Encounter [facility] [place] Date(s): 11/20/24 - 01/28/[address] [address] Attending Physician: Not on Staff, Attending MD Encounter Type: Pre-OutPatient One Time Allergies, Adverse Reactions, Alerts No Known Allergies [...] 9:16:00 AM EST, Route to Pharmacy Electronically, [facility]/pharmacy #[id number], Partial fill upon patient request [...] History of gestational diabetes Confirmed Active Uses Azeri as primary spoken language Confirmed Active Mild [...] Position: Reference Physician Member Role: PCP Address: [address] [place] [address] [address] [place] [address] Telecom: Care Team Related Persons Name: PASCALE ARMENDARIZ Name: SARAH ARMENDARIZ Name: SUZANNA VARELA Insurance Providers Guarantor name: ASYA VARELA Health Plan Information #: 1 Payer: [employer] Member Number: [id number] Policy Number: NA Group Number: NA Health Plan Information #: 2 Payer: [employer] Member Number: [id number] Policy Number: NA Group Number: NA
== END 2025-02-08 15:25 | disposition home or self-care (01) ==
LOC: HO.HMCH 14:22
PROVIDERS: PCP Internal Medicine
DX: J30.89 Other allergic rhinitis (principal); E66.3 Overweight; J45.909 Unspecified asthma, uncomplicated; J02.9 Acute pharyngitis, unspecified; J35.1 Hypertrophy of tonsils

== ENCOUNTER → 2025-02-08 14:21 | Outpatient (BNVA) | payer OTHER, SELFPAY | PROVIDERS: PCP Internal Medicine | DX: E66.3 Overweight (principal); J45.909 Unspecified asthma, uncomplicated; J02.9 Acute pharyngitis, unspecified; J35.1 Hypertrophy of tonsils | CPT/HCPCS: 99212 ==

== ENCOUNTER 2025-02-12 14:17 | Outpatient (AMB) | payer OTHER, SELFPAY ==
[2025-02-12 14:23] VITALS: BP 114/60; PULSE 68; O2SAT 100; BMI 28.5
--- NOTE | 2025-02-12 14:23 | MHC.OFFVIS ---
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 Required: No Instructional Material Director: Instructional Material Director offered & declined Accompanied by: Self / Same As Patient Allergies Seasonal Allergies Allergy (Intermediate, Verified 02/12/25 14:25) sneezing, mucus Medication List - Last Reconciled 02/12/25 by Karla Johnson LPN albuterol sulfate 90 mcg/actuation 2 puffs inhalation Q6H PRN 30 days benzonatate 200 mg (2 x 100 mg) PO BID cetirizine (All Day Allergy (cetirizine)) 10 mg PO DAILY PRN fluticasone furoate 27.5 mcg/actuation (Flonase Sensimist) 1 spray intranasal DAILY qgldkhgzhzw-firxczdqs-apvjjebo 100-62.5-25 mcg (Trelegy Ellipta) 1 inh inhalation DAILY 28 days lidocaine 5% (Lidoderm) 1 patch topical DAILY montelukast 10 mg PO BEDTIME HPI HPI Asthma: Details: Celine is a pleasant 24 year old female, never smoker, with underlying asthma since childhood. She was referred by PCP for pulmonary evaluation for uncontrolled asthma over the last five months. She reports worsening dyspnea, chest tightness, wheezing, and dry cough despite starting Trelegy 100 mcg two months ago. She continues to require albuterol MDI frequently with suboptimal effect. She last had prednisone a few weeks ago reportedly 10 mg x 3 days with minimal improvement. She was dx with asthma as a child never requiring intubation/hospitalizations related to respiratory distress. She endorses second hand smoke exposure. She reports mother with asthma. She reports significant environmental allergies, had SPT many years ago, using singulair, zyrtec and flonase with minimal effect. She has a dog and two birds at home. She reports significant dust exposure at work, has been there x 4 years. [facility] Medical History Allergic rhinitis Cough Abdominal pain Overweight (BMI 25.0-29.9) Mild asthma Surgical History No pertinent past surgical history Family History Mother No problems noted. Father No problems noted. Social History Housing: House Alcohol intake: current Alcohol intake frequency: holidays/special occasions only Alcohol type: other Patient Tobacco Use Status: Never used Tobacco e-Cigarette/Vaping Use: Never Used Second Hand Smoke Exposure: Yes service: No Current occupational status: employed Current occupation: [employer] Current occupational exposures/hazards: No Cognitive needs: No Hearing needs: No Vision needs: No Review of Systems Const Denies chills, Denies excessive sweating, Denies fever(s), Denies headache(s) and Denies night sweats Eyes Denies dry eyes, Denies irritation and Denies itchy eyes ENT Reports Normal hearing present, Denies headache(s), Denies post nasal drip and Denies sore throat Card Denies chest pain, Denies chest pain at rest, Denies chest pain with activity, Denies claudication, Denies leg edema, Reports dyspnea on exertion, Denies orthopnea and Denies paroxysmal nocturnal dyspnea Resp Denies change in phlegm color, Denies chest congestion, Reports cough, Denies hemoptysis, Denies excessive phlegm production, Denies pain on inspiration, Denies pain with cough, Reports dyspnea on exertion, Denies stridor and Reports wheezing Musc Denies myalgias Neuro Reports Normal hearing present and Denies headache(s) Endo Denies excessive sweating Ziggy/Lymph Denies lymphadenopathy Aller/Immun Denies itchy eyes, Reports seasonal rhinorrhea and Reports wheezing Physical Exam Vital Signs: Last Vital Signs Pulse 68 02/12/25 14:23 BP 114/60 02/12/25 14:23 Pulse Ox 100 02/12/25 14:23 Oxygen Delivery Method Room Air 02/12/25 14:23 BMI result Body Mass Index 28.5 Const General: cooperative, healthy appearing, comfortable, no acute distress, well developed and alert Orientation/consciousness: patient oriented x3 Limitations: no limitations HEENT Head: Yes normal to inspection, Yes normocephalic and Yes atraumatic Ears: hearing grossly normal bilaterally and external ears normal Eyes General: appearance normal, both eyes and all related structures Eyelids: Yes eyelids normal Sclerae: sclerae normal EOM: EOMs intact bilaterally Neck Neck: Yes normal visual inspection and Yes no lymphadenopathy Lymphatic: no lymphadenopathy noted Chest Chest palpation & inspection: normal inspection of the chest Resp Effort & Inspection: normal respiratory effort, able to speak in complete sentences, no audible wheezes, no cough, no stridor, not tachypneic, no tripod positioning and no use of accessory muscles Auscultation: clear to auscultation bilaterally Cardio Jugular venous distension: no JVD Rate: regular rate Rhythm: regular rhythm Skin Other: warm, dry General skin exam: no rashes or lesions noted Neuro General: patient oriented x3 Cranial nerves: Yes Normal hearing present Cognition (Neuro): normal cognition Gait exam (Neuro): Normal gait present Extrem General: Yes normal to inspection, Yes capillary refill normal, Yes no clubbing, cyanosis or edema and Yes no pedal edema Psych Appearance: grossly normal and well kempt Speech and movement: Normal speech and movement present and Clear speech present Affect: normal affect Attitude: cooperative Thought process: Normal thought process present Thought content: Normal thought content present Insight: Good insight present (Psych) Judgement: Good judgement present (Psych) Assessment & Plan Assessment & Plan (1) Asthma: Code(s): J45.909 - Unspecified asthma, uncomplicated Category: Medical (2) Environmental allergies: Code(s): Z91.09 - Other allergy status, other than to drugs and biological substances Category: Medical (3) Allergic rhinitis: Code(s): J30.9 - Allergic rhinitis, unspecified Category: Medical Qualifiers: Allergic rhinitis trigger: other Allergic rhinitis seasonality: seasonal Qualified Code(s): J30.89 - Other allergic rhinitis (4) Cough: Code(s): R05.9 - Cough, unspecified Category: Medical Qualifiers: Cough type: subacute Qualified Code(s): R05.2 - Subacute cough Plan Celine presents for pulmonary evaluation for uncontrolled asthma, with likely allergic component. Will send for PFT and RAST. Will increase Trelegy to 200mcg and send nebulizer for home use with albuterol solution. If minimal improvement, will consider biologic therapy. Will also send for CXR for persistent cough. All questions were answered and patient is in agreement of plan. Will follow up in 6-8 weeks or sooner if needed. Orders: Orders Complete Blood Count Auto Diff Today Z91.09 - Other allergy status, other than to drugs and biological substances Immunoglobulin E Today Z91.09 - Other allergy status, other than to drugs and biological substances Other Ref Test - Misc Today Z91.09 - Other allergy status, other than to drugs and biological substances Resp Allergy Profile Region I Today Z91.09 - Other allergy status, other than to drugs and biological substances XR chest 2V Today R05.2 - Subacute cough PFT pulmonary function test Today J45.909 - Unspecified asthma, uncomplicated Medications: New dkhvzqhzzgo-rmfbezlbn-mpnktsny 200-62.5-25 mcg (Trelegy Ellipta) 1 inh inhalation DAILY 60 ea 3RF albuterol sulfate 2.5 mg (3 mL) inhalation Q4-6H PRN 180 mL 0RF shortness of breath or wheezing Discontinued swxujlteioc-cuoaysbsx-zstfbzwd 100-62.5-25 mcg (Trelegy Ellipta) Discontinued Reason: Patient Completed Course 1 inh inhalation DAILY 28 days 28 ea 6RF J45.40 - Moderate persistent asthma, uncomplicated Coding Level of Care Code New Pt Level 4 (09279) Diagnoses Asthma J45.909 Environmental allergies Z91. Seasonal allergic rhinitis due to other allergic trigger J30.89 Allergic rhinitis trigger: other Allergic rhinitis seasonality: seasonal Subacute cough R05.2 Cough type: subacute
== END 2025-02-12 15:38 | disposition home or self-care (01) ==
LOC: HO.HPS 14:17
PROVIDERS: PCP Internal Medicine; Visit Provider Nurse Practitioner Family
DX: J45.909 Unspecified asthma, uncomplicated (principal); Z91.09 Other allergy status, other than to drugs and biological substances; J30.89 Other allergic rhinitis; R05.2 Subacute cough
CPT/HCPCS: 99204

== ENCOUNTER 2025-02-12 14:17 | Outpatient (REF) | payer OTHER, SELFPAY ==
--- NOTE | ~2025-02-12 | XR_ITS ---
EXAMINATION: XR CHEST 2 VIEWS HISTORY: R05.2 - Subacute cough COMPARISON: There are no prior studies for comparison. FINDINGS: PA and lateral views of the chest are submitted. The lungs are expanded and clear. There is no pleural effusion, pneumothorax, or pulmonary vascular congestion. The heart is normal in size. The bones are intact. XR/XR chest 2V IMPRESSION: Normal examination of the chest. Electronically signed by: Pete Hathaway MD 02/13/2025 08:50 AM EDT
[2025-02-12 15:29] LABS: MANUAL DIFF FLAG NO
[2025-02-12 16:57] LABS: Basophils Percent Auto 0.5 % (0-2); Eosinophils Absolute Auto 0.1 X10*3/uL (0.0-0.4); Eosinophils Percent Auto 1.2 % (0-4); Hematocrit 37.8 % (37.0-47.0); Hemoglobin 12.1 g/dl (12.0-16.0); Imm Gran Abs Auto 0.03 X10*3/uL (0.00-0.03); Imm Gran Pct Auto 0.3 % (0.0-0.4); Lymphocytes Absolute Auto 2.5 X10*3/uL (1.2-4.9); Mean Corpuscular Hemoglobin 27.4 pg (27.0-33.0); Mean Corpuscular Volume 85.5 fL (80.0-98.0); Mean Platelet Volume 9.7 fL (9.4-12.3); Monocytes Absolute Auto 0.5 X10*3/uL (0.1-1.2); Monocytes Percent Auto 5.8 % (2-11); Neutrophils Absolute Auto 5.7 x10*3/uL (2.0-8.3); Neutrophils Percent Auto 64.2 % (45-73); Platelet Count 314 X10*3/uL (160-400); Red Blood Count 4.42 X10*6/uL (4.20-5.50); Red Cell Distribution Width 12.2 % (11.0-16.0); White Blood Count 8.8 X10*3/uL (4.8-10.8)
[2025-02-14 21:18] LABS: Class Alternaria alternata 0; Class Aspergillus fumigatus 0; Class Bermuda Grass 0; Class Birch 3; Class Cat Dander 0; Class Cladosporium herbarum 0; Class Cockroach 0; Class Common Ragweed 0/1; Class Cottonwood 0; Class Derm. pterony 1; Class Dermatophagoides farinae 0/1; Class Dog Dander 2; Class Elm 0/1; Class Maple Box Elder 0; Class Mountain Cedar 0; Class Mouse Urine Protein 0; Class Mugwort 0; Class Oak 2; Class Penicillium crysogenum 0; Class Rough Pigweed 0; Class Sheep Sorrel 0; Class Sycamore 0; Class Timothy Grass 0; Class Walnut Tree 0; Class White Ash 0; Class White Mulberry 0; D001 IgE D pteronyssinus 0.47 kU/L; D002 - IgE D farinae 0.27 kU/L; E001 - IgE Cat Dander <0.10 kU/L; E005 - IgE Dog Dander 1.02 kU/L; E072-IgE Mouse Urine <0.10 kU/L; G002 IgE Bermuda Grass <0.10 kU/L; G006 - IgE Timothy Grass <0.10 kU/L; I006-IgE Cockroach, German <0.10 kU/L; Immunoglobulin E 45 kU/L (<OR=114); M001 IgE Penicillium chrysogen <0.10 kU/L; M002 - IgE Cladosporium herbar <0.10 kU/L; M003 - IgE Aspergillus fumigat <0.10 kU/L; M006 - IgE Alternaria alternat <0.10 kU/L; T001 IgE Maple/Box Elder <0.10 kU/L; T003 IgE Common Silver Birch 8.65 kU/L; T006 - IgE Cedar, Mountain <0.10 kU/L; T007 - IgE Oak, White 1.96 kU/L; T008 IgE Elm, American 0.15 kU/L; T010 - IgE Walnut <0.10 kU/L; T011 - IgE Maple Leaf Sycamore <0.10 kU/L; T014 - IgE Cottonwood <0.10 kU/L; T015 - IgE Ash, White <0.10 kU/L; T070 - IgE White Mulberry <0.10 kU/L; W001 - IgE Ragweed, Short 0.12 kU/L; W006 - IgE Mugwort <0.10 kU/L; W014 IgE Pigweed, Common <0.10 kU/L; W018 IgE Sheep Sorrel <0.10 kU/L
[2025-02-20 11:59] LABS: Canary Droppings Ab NEGATIVE; Chicken Serum Ab NEGATIVE; Cockatiel Droppings Ab NEGATIVE; Finch Droppings Ab NEGATIVE; Parakeet Droppings Ab NEGATIVE; Parakeet Serum Ab NEGATIVE; Parrot Serum Ab EQUIVOCAL
[2025-02-20 12:00] LABS: Parrot Droppings Ab NEGATIVE; Pigeon/Dove Droppings Ab NEGATIVE
[2025-02-20 12:01] LABS: Pigeon/Dove Serum Ab NEGATIVE
== END 2025-02-12 14:18 | disposition home or self-care (01) ==
LOC: HO.LAB 14:17
PROVIDERS: PCP Internal Medicine; Visit Provider Nurse Practitioner Family
DX: Z91.09 Other allergy status, other than to drugs and biological substances (principal); J30.89 Other allergic rhinitis; R05.2 Subacute cough
CPT/HCPCS: 36415; 71046; 82785; 85025; 86003; 86331; 99202

== ENCOUNTER → 2025-02-12 15:29 | Outpatient (BNV) | payer OTHER, SELFPAY | PROVIDERS: PCP Internal Medicine; Visit Provider Radiology Diagnostic Radiology | DX: R05.2 Subacute cough (principal) | CPT/HCPCS: 71046 ==

== ENCOUNTER 2025-03-16 07:51 | Outpatient (REF) | payer OTHER, SELFPAY ==
--- OUTSIDE RECORDS SUMMARY | 2025-03-16 07:54 | XMS_ITS | Clinical Summary ---
Author Organization [employer] Address [address] [place] [address] Care Team Providers Care Master Welder Name Role Phone Unavailable Primary Care Provider [...]
--- OUTSIDE RECORDS SUMMARY | 2025-03-16 07:54 | XMS_ITS | Clinical Summary ---
Author Organization [facility] ity Address [address] [place] [address] Care Team Providers Care Brick Loader Name Role Phone Unavailable Primary Care Provider [...] Vaccine (2023-2 5 season) 2024 Influenza Vaccine (Season Ended) 2025 HIB Vaccines Aged Out No longer eligi [...] age to complete this topic Meningococcal B Vaccine Aged Out No l onger eligible based on patient's age to complete [...]
--- NOTE | 2025-03-16 07:56 | PFT_ITS ---
Flows: FEV1: 104 % of predicted at 2.88 L FVC: 100 % of predicted at 3.18 L FEV1/FVC: 91 % Bronchodilator response: Absent Volumes: Total lung capacity: 98 % of predicted at 4.12 L Residual volume: 109 % of predicted at 1.00 L Slow vital capacity: 96 % of predicted at 3.12 L Expiratory reserve volume: 65 % of predicted at 0.66 L Diffusion capacity: Normal Impression: No obstructive or restrictive ventilatory defect. No bronchodilator response. Normal pulmonary function test. MTDD
[2025-03-16 08:32] VITALS: PULSE 78; O2SAT 98
== END 2025-03-16 07:52 | disposition home or self-care (01) ==
LOC: HO.RESP 07:51
PROVIDERS: PCP Internal Medicine; Visit Provider Nurse Practitioner Family
DX: J45.909 Unspecified asthma, uncomplicated (principal)
CPT/HCPCS: 94010; 94640; 94727; 94729

== ENCOUNTER → 2025-03-16 07:56 | Outpatient (BNV) | payer OTHER, SELFPAY | PROVIDERS: PCP Internal Medicine; Visit Provider Internal Medicine Pulmonary Disease | DX: J45.909 Unspecified asthma, uncomplicated (principal) | CPT/HCPCS: 94060; 94727; 94729 ==

== ENCOUNTER 2025-04-02 15:57 | Outpatient (AMB) | payer OTHER, SELFPAY ==
--- NOTE | 2025-04-02 15:54 | A.OFFVIS_ITS ---
Vital Signs 04/02/25 16:01 Height 4 ft 11 in Weight 138 lb 14.259 oz BMI 28.0 BP 106/72 Blood Pressure Location Rt brachial Position Sitting Pulse 76 Pulse Source Pulse Oximeter Pulse Oximetry (%) 99 Oxygen Delivery Method Room Air Intake Visit Reasons: Asthma Allergies Seasonal Allergies Allergy (Intermediate, Verified 04/02/25 16:04) sneezing, mucus HPI HPI Asthma: Details: Celine is a pleasant 24 year old female, never smoker, with underlying asthma since childhood. She was initially referred by PCP for pulmonary evaluation for uncontrolled asthma over the last five months. She reported worsening dyspnea, chest tightness, wheezing, and dry cough despite Trelegy 100 mcg. At the last visit she was switched to Trelegy at the last visit and reports significant improvements. She currently denies any respiratory symptoms. Today she presents to review CXR, PFT and RAST. Of note, she was seen in the ED at [facility] yesterday for ongoing sore throat, dx with strep. She has a referral from PCP to ENT. [facility] Medical History Allergic rhinitis Cough Abdominal pain Overweight (BMI 25.0-29.9) Mild asthma Surgical History No pertinent past surgical history Family History Mother No problems noted. Father No problems noted. Social History Housing: House Alcohol intake: current Alcohol intake frequency: holidays/special occasions only Alcohol type: other Patient Tobacco Use Status: Never used Tobacco e-Cigarette/Vaping Use: Never Used Second Hand Smoke Exposure: Yes service: No Current occupational status: employed Current occupation: [employer] Current occupational exposures/hazards: No Cognitive needs: No Hearing needs: No Vision needs: No Review of Systems Const Denies chills, Denies excessive sweating, Denies fever(s), Denies headache(s) and Denies night sweats Eyes Denies dry eyes, Denies irritation and Denies itchy eyes ENT Reports Normal hearing present, Denies headache(s), Denies post nasal drip and Denies sore throat Card Denies chest pain, Denies chest pain at rest, Denies chest pain with activity, Denies claudication, Denies leg edema, Denies dyspnea on exertion, Denies orthopnea and Denies paroxysmal nocturnal dyspnea Resp Denies change in phlegm color, Denies chest congestion, Denies cough, Denies hemoptysis, Denies excessive phlegm production, Denies pain on inspiration, Denies pain with cough, Denies dyspnea on exertion, Denies stridor and Denies wheezing Musc Denies myalgias Neuro Reports Normal hearing present and Denies headache(s) Endo Denies excessive sweating Ziggy/Lymph Denies lymphadenopathy Aller/Immun Denies itchy eyes, Reports seasonal rhinorrhea and Denies wheezing Physical Exam Vital Signs: Last Vital Signs Pulse 76 04/02/25 16:01 BP 106/72 04/02/25 16:01 Pulse Ox 99 04/02/25 16:01 Oxygen Delivery Method Room Air 04/02/25 16:01 BMI result Body Mass Index 28.0 Const General: cooperative, healthy appearing, comfortable, no acute distress, well developed and alert Orientation/consciousness: patient oriented x3 Limitations: no limitations HEENT Head: Yes normal to inspection, Yes normocephalic and Yes atraumatic Ears: hearing grossly normal bilaterally and external ears normal Eyes General: appearance normal, both eyes and all related structures Eyelids: Yes eyelids normal Sclerae: sclerae normal EOM: EOMs intact bilaterally Neck Neck: Yes normal visual inspection and Yes no lymphadenopathy Lymphatic: no lymphadenopathy noted Chest Chest palpation & inspection: normal inspection of the chest Resp Effort & Inspection: normal respiratory effort, able to speak in complete sentences, no audible wheezes, no cough, no stridor, not tachypneic, no tripod positioning and no use of accessory muscles Auscultation: clear to auscultation bilaterally Cardio Jugular venous distension: no JVD Rate: regular rate Rhythm: regular rhythm Skin Other: warm, dry General skin exam: no rashes or lesions noted Neuro General: patient oriented x3 Cranial nerves: Yes Normal hearing present Cognition (Neuro): normal cognition Gait exam (Neuro): Normal gait present Extrem General: Yes normal to inspection, Yes capillary refill normal, Yes no clubbing, cyanosis or edema and Yes no pedal edema Psych Appearance: grossly normal and well kempt Speech and movement: Normal speech and movement present and Clear speech present Affect: normal affect Attitude: cooperative Thought process: Normal thought process present Thought content: Normal thought content present Insight: Good insight present (Psych) Judgement: Good judgement present (Psych) Results Reviewed Results Reviewed: [address] [address] XRay Report Signed Patient: Celine Barreto MR#: [id number] : 2000 Acct:[id number] Age/Sex: 24 / F ADM Date: 02/12/25 Loc: HO.LAB Attending Dr: Nu Lanier NP Ordering Physician: Nu Lanier NP Date of Service: 02/12/25 Procedure(s): XR chest 2V Accession Number(s): [id number] cc: Shantell Byers MD; Nu Lanier NP~ EXAMINATION: XR CHEST 2 VIEWS HISTORY: R05.2 - Subacute cough COMPARISON: There are no prior studies for comparison. FINDINGS: PA and lateral views of the chest are submitted. The lungs are expanded and clear. There is no pleural effusion, pneumothorax, or pulmonary vascular congestion. The heart is normal in size. The bones are intact. XR/XR chest 2V IMPRESSION: Normal examination of the chest. Electronically signed by: Pete Hathaway MD 02/13/2025 08:50 AM EDT Dictated By: Pete Hathaway MD Signed By: <Electronically signed by Pete Hathaway MD in OV> 02/13/25 0850 DD/ 1529 TD/TT: 02/12/25 1541 Repairer Shoe Sticks: Assessment & Plan Assessment & Plan (1) Asthma: Code(s): J45.909 - Unspecified asthma, uncomplicated Category: Medical (2) Environmental allergies: Code(s): Z91.09 - Other allergy status, other than to drugs and biological substances Category: Medical (3) Allergic rhinitis: Code(s): J30.9 - Allergic rhinitis, unspecified Category: Medical Qualifiers: Allergic rhinitis seasonality: seasonal Allergic rhinitis trigger: other Qualified Code(s): J30.89 - Other allergic rhinitis (4) Cough: Code(s): R05.9 - Cough, unspecified Category: Medical Qualifiers: Cough type: subacute Qualified Code(s): R05.2 - Subacute cough Plan At this time, patient reports good control of respiratory symptoms on Trelegy, infrequently using albuterol MDI, advised to continue. Reviewed PFT which revealed no obstructive or restrictive ventilatory defect. No bronchodilator response except in small to medium airways. DLCO WNL. IgE 45, RAST + to multiple environmental allergens, discussed ways to minimize allergen exposure. CXR unremarkable. All questions were answered and patient is in agreement of plan. Will follow up in 3 months or sooner if needed. Coding Level of Care Code Est Pt Level 4 (99935) Diagnoses Asthma J45.909 Environmental allergies Z91.09 Seasonal allergic rhinitis due to other allergic trigger J30.89 Allergic rhinitis seasonality: seasonal Allergic rhinitis trigger: other Subacute cough R05.2 Cough type: subacute
--- OUTSIDE RECORDS SUMMARY | 2025-04-02 16:00 | XMS_ITS | Continuity of Care Document ---
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 And Plastic Name Role Phone Adria Piña MD, Shantell Noriega Primary Care Physician [id number] Date(s): 04/01/25 - 04/01/25 [facility] [address] [place] [id number]- Discharge Disposition: A-D/C Home Attending Physician: Gauri Hammer MD Admitting Physician: Gauri Hammer MD Referring Physician: Not on Staff, Referring MD Encounter Type: Disch ES Allergies, Adverse Reactions, Alerts No Known Allergies [...] 9:16:00 AM EST, Route to Pharmacy Electronically, [facility]/pharmacy #[id number], Partial fill upon patient request if the prescription is for a schedule II opioid drug., 150, cm, 06/09/23 13:15:00 EDT, Height, 69.4, kg, 05/01/23 5:54:00 EDT, Dry Weight Start Date: 10/18/23 Status: Ordered Quantity: 30.0 Unit: tablet Repeat number: 1 ibuprofen 600 mg oral tablet 600 mg, 1, tablet, By Mouth, Every 6 hours, PRN, for 10 days, # 40 tablet, Refills 0, Tot. Refills 0, Acute 04/11/25 1:39:00 PM EDT, Pain , Mild, 04/01/25 1:39:00 PM EDT, Route to Pharmacy Electronically, [facility]/pharmacy #[id number], Partial fill upon patient request if the prescription is for a schedule II opioid drug., 150, cm, 04/01/25 11:38:00 EDT, Height, 63.5, kg, 04/01/25 11:38:00 EDT, Dry Weight Start Date: 04/01/25 Stop Date: 04/11/25 Status: Ordered Quantity: 40.0 Unit: tablet Repeat number: 1 penicillin V potassium 500 mg oral tablet 1 tablet = 500 mg, By Mouth, 3 times a day, for 10 days, # 30 tablet, 0 Refills, Acute 04/11/25 1:39:00 PM EDT, 04/01/25 1:39:00 PM EDT, [facility] #[id number], Partial fill upon patient request if the prescription is for a schedule II opioid drug., 150, cm, 04/01/25 11:38:00 EDT, Height, 63.5, kg, 04/01/25 11:38:00 EDT, Dry Weight Start Date: 04/01/25 Stop Date: 04/11/25 Status: Ordered Quantity: 30.0 Unit: tablet Repeat [...] Quantity: 60.0 Unit: capsule Repeat number: 1 Tylenol Extra Strength 500 mg oral tablet 2 tablet = 1,000 mg, By Mouth, Every 6 hours, PRN as needed for pain, for 10 days, # 80 tablet, 0 Refills, Acute 04/11/25 1:38:00 PM EDT, 04/01/25 1:38:00 PM EDT, Tablet, [facility]/pharmacy #[id number], Partial fill upon patient request if the prescription is for a schedule II opioid drug., 150, cm, 04/01/25 11:38:00 EDT, Height, 63.5, kg, 04/01/25 11:38:00 EDT, Dry Weight Start Date: 04/01/25 Stop Date: 04/11/25 Status: Ordered Quantity: 80.0 Unit: tablet Repeat number: 1 Problem List Condition Confirmation Course Effective Dates Status H ealth Status Informant Asthma Confirmed Active Gastroesophageal reflux disease Confirmed Active History of prior with IUGR Confirmed Active History of gestational diabetes Confirmed Active Uses Serbian as primary spoken language Confirmed Active Mild intermittent asthma Confirmed Active History of prior with small for gestational age Confirmed Active Rubella non-immune Confirmed Active Positive urine drug screen Confirmed Active Results Orders for Microbiology Reports Name Date Group A Strep Screen and Culture 04/01/25 Microbiology Reports TEST:Group A Strep Screen and Culture STATUS:Auth (Verified) BODY SITE: SOURCE:THROAT COLLECTED DATE/TIME:04/01/25 12:44 PM Group A Strep Screen and Culture SPECIMEN DESCRIPTION : THROAT SWAB SPECIAL REQUESTS : NONE DIRECT EXAM : RAPID GROUP A ANTIGEN SCREEN IS POSITIVE, CULTURE NOT INDICATED. CULTURE : RAPID GROUP A ANTIGEN SCREEN IS POSITIVE, CULTURE NOT INDICATED. REPORT STATUS : FINAL 04/01/2025 Vital Signs Most recent to oldest [Reference Range]: 1 2 3 Height 150 cm (04/01/25 11:38 AM) 150 cm (04/01/25 10:57 AM) 150 cm (04/01/25 10:53 AM) Weight 63.5 kg (04/01/25 11:38 AM) 63.5 kg (04/01/25 10:57 AM) 63.5 kg (04/01/25 10:53 AM) Oxygen Saturation [94-100 %] 100 % (04/01/25 2:01 PM) 100 % (04/01/25 10:53 AM) Pulse Rate [55-90 bpm] 80 bpm (04/01/25 2:01 PM) 97 bpm *H* (04/01/25 10:53 AM) Body Mass Index [18.5-24.99 kg/m2] 28.22 kg/m2 *H* (04/01/25 10:57 AM) 28.22 kg/m2 *H* (04/01/25 10:53 AM) Blood Pressure [90-138/55-84 mm Hg] 108/81mm Hg (04/01/25 2:01 PM) 110/62mm Hg (04/01/25 10:53 AM) Respiratory Rate [16-30 br/min] 18 br/min (04/01/25 2:01 PM) 18 br/min (04/01/25 10:53 AM) Temperature [96.8-100.4 DegF] 98.2 DegF (04/01/25 2:01 PM) 99.1 DegF (04/01/25 10:53 AM) Mode of Delivery (Oxygen) Room air (04/01/25 2:01 PM) Room air (04/01/25 10:53 AM) Blood pressure sites Arm, left (04/01/25 2:01 PM) Arm, left (04/01/25 10:53 AM) Temperature Route Oral (04/01/25 2:01 PM) Oral (04/01/25 10:53 AM) Dry Weight 63.5 kg (04/01/25 11:38 AM) 63.5 kg (04/01/25 10:57 AM) 63.5 kg (04/01/25 10:53 AM) Weight Obtained Via Patient/family state d (04/01/25 10:53 AM) Dry Weight Obtained Via Patient/family s tated (04/01/25 10:53 AM) Social History Social History Type Response Smoking Status Never (less than 100 in lifetime) entered on: 09/15/22 Sex Sex Representation Female (finding) Note * Alycia Garnica: PERFORM Event Display: Patient Education Leaflets Authored Date: [id number] Pharyngitis: Strep (Confirmed) ?? [id number] Pharyngitis: Strep (Confirmed) You have had a positive test for strep throat. Strep throat is a bacterial infection that can be spread to others. It's spread by coughing, kissing, sharing glasses or eating utensils, or by touchingothers after touching your mouth or nose. Symptoms may include: ??? Throat pain that's worse when you swallow. ??? Aching all over. ??? Headache. ??? Swollen lymphnodes at the front of the neck. ??? Red, swollen tonsils that may have white patches. ??? Fever. It's treated with antibiotic medicine. You should start to feel better in 1 to 2 days with treatment. Home care ??? Rest at home. Drink plenty of fluids so you won't get??dehydrated. ??? You can returnto school or work if you are feeling better, have been taking the antibiotic for at least 24 hours,and don't have a fever. ??? If your doctor prescribed antibiotics, take them as directed. Do not stop taking them just because you feel better. You need to take the full course of antibiotics.??It's also important to prevent medicine-resistant germs from developing.??If you were given an antibioticshot, you don't need any more antibiotics. ??? You may use acetaminophen??or ibuprofen to control pain or fever unless another medicine is prescribed for this. Talk with your doctor before taking these medicines if you have??chronic liver or kidney disease or if you've??had a stomach ulcer, digestive bleeding, or if you're taking blood thinners. ??? Throat lozenges or sprays help reduce pain. Gargling with warm saltwater will also ease throat pain. Dissolve 1/2 teaspoon of salt in 1 glass of warm water. This may be useful just before meals. ??? Soft foods and cool or warm fluids are best. Don't eat salty or spicy foods. ?? Follow-up care Follow up with your doctor if you don't get better over the next week. ?? When to contact your doctor Contact your doctor right away if: ??? You have a fever of 100.4??F (38??C) or higher, or as directed by your doctor. ??? You have ear pain, sinus pain, or headache that is new or gets worse. ??? Youhave painful lumps in the back of neck. ??? Your neck is stiff. ??? Your lymph nodes??are getting larger or becoming soft in the middle. ??? You have trouble swallowing liquids or you can't??open your mouth wide because of??throat pain. ??? You have signs of dehydration. These include very dark urine or no urine, sunken eyes, and dizziness. ??? Your breathing is noisy. ??? You have a rash. ?? Call 911 Call 911 right away if: ??? You have trouble breathing. ??? You can't swallow or talk. ??? You speak with a muffled voice. ?? Prevention Here are steps you can take to help prevent an infection: ??? Wash your hands often with soap and clean, running water for at least 20 seconds. ??? Don???t have close contact with people who have sore throats, colds, or other upper respiratory infections. ??? Don???t smoke, and stay away from secondhand smoke. ?? Last Reviewed Date: 2025 00:00:00 ?? 9916-3761 [employer]. All rights reserved. This information is not intended as a substitute for professional medical care. Always follow your healthcare professional's instructions. ?? Patient Care team information Care Team Personnel Name: Adria Piña MD , Shantell Noriega Position: Reference Physician Member Role: PCP Address: [address] [place] [address] [address] [place], [place] [address] Telecom: Care Team Related Persons Name: PASCALE ARMENDARIZ Name: SARAH ARMENDARIZ Name: SUZANNA VARELA Insurance Providers Guarantor name: ASYA AMBRIZ VARELA Health Plan Information #: 1 Payer: [employer] Member Number: [id number] Policy Number: NA Group Number: NA Health Plan Information #: 2 Payer: [employer] Member Number: [id number] Policy Number: NA Group Number: NA
--- OUTSIDE RECORDS SUMMARY | 2025-04-02 16:00 | XMS_ITS | Clinical Summary ---
Author Organization [employer] Address [address] [place] [address] Care Team Providers Care Telephone Coin Box Collector Name Role Phone Unavailable Primary Care Provider [...]
--- OUTSIDE RECORDS SUMMARY | 2025-04-02 16:00 | XMS_ITS | Clinical Summary ---
Author Organization [facility] ity Address [address] [place] [address] Care Team Providers Care Order Clerk Name Role Phone Unavailable Primary Care Provider [...]
[2025-04-02 16:01] VITALS: BP 106/72; PULSE 76; O2SAT 99; BMI 28.0
== END 2025-04-02 16:26 | disposition home or self-care (01) ==
LOC: HO.HPS 15:58
PROVIDERS: PCP Internal Medicine; Visit Provider Nurse Practitioner Family
DX: J45.909 Unspecified asthma, uncomplicated (principal); Z91.09 Other allergy status, other than to drugs and biological substances; J30.89 Other allergic rhinitis; R05.2 Subacute cough
CPT/HCPCS: 99214

== ENCOUNTER → 2025-04-02 15:57 | Outpatient (BNVA) | payer OTHER, SELFPAY | PROVIDERS: PCP Internal Medicine; Visit Provider Nurse Practitioner Family | DX: J45.909 Unspecified asthma, uncomplicated (principal); J30.89 Other allergic rhinitis; Z91.09 Other allergy status, other than to drugs and biological substances; R05.2 Subacute cough | CPT/HCPCS: 99212 ==

== ENCOUNTER 2025-04-05 16:47 | Outpatient (AMB) | payer OTHER, SELFPAY ==
--- OUTSIDE RECORDS SUMMARY | 2025-04-05 16:49 | XMS_ITS | Clinical Summary ---
Author Organization [employer] Address [address] [place] [address] Care Team Providers Care High School Coach Name Role Phone Unavailable Primary Care Provider [...]
--- NOTE | 2025-04-05 16:53 | A.OFFPC_ITS ---
Vital Signs 04/05/25 16:55 Height 4 ft 11 in Weight 138 lb BMI 27.9 BP 110/70 Blood Pressure Location Lt brachial Position Sitting Intake Visit Reasons: Follow up Fruit Inspector Required: Yes Fruit Inspector Language: Home Care Attendant Name: Shantell Piña MD Information Interpreted: non-clinical & clinical Accompanied by: Self / Same As Patient Allergies Seasonal Allergies Allergy (Intermediate, Verified 04/05/25 17:02) sneezing, mucus Medication List - Last Reconciled 04/05/25 by Shantell Piña MD albuterol sulfate 2.5 mg (3 mL) inhalation Q4-6H PRN albuterol sulfate 90 mcg/actuation 2 puffs inhalation Q6H PRN 30 days cetirizine (All Day Allergy (cetirizine)) 10 mg PO DAILY PRN fluticasone furoate 27.5 mcg/actuation (Flonase Sensimist) 1 spray intranasal DAILY kzbazyldnfu-cnftpzfee-hjxesssn 200-62.5-25 mcg (Trelegy Ellipta) 1 inh inhalation DAILY lidocaine 5% (Lidoderm) 1 patch topical DAILY montelukast 10 mg PO BEDTIME Tobacco use date assessed: 02/08/25 Dental Screening Dental Screen Date: 02/08/25 HPI HPI Comments History of Present Illness Details The patient is a 24-year-old female presenting for a follow-up on asthma and allergic conditions, accompanied by concerns about fatigue and mild depression. The patient reports seeing a fish cutting machine operator, where lung function tests were performed with no evidence of obstruction or restriction. She is managing her allergies with multiple medications, including albuterol, cetirizine, fluticasone, Trelegy, and Singulair. The patient's considerable fatigue is associated with her work environment, which likely exacerbates her condition due to the high dust exposure. She has been working at [employer] for several years and is currently searching for alternative employment due to health concerns linked with this environment. Additionally, her depressive symptoms emerged during a routine assessment, although not pursued further with treatment at this stage. Her recent visit to [facility] for acute amygdala pain indicated an acute episode, which prompted the use of antibiotics. [facility] Medical History Allergic rhinitis Cough Abdominal pain Overweight (BMI 25.0-29.9) Mild asthma Surgical History No pertinent past surgical history Family History Mother No problems noted. Father No problems noted. Social History Housing: House Alcohol intake: current Alcohol intake frequency: holidays/special occasions only Alcohol type: other Patient Tobacco Use Status: Never used Tobacco e-Cigarette/Vaping Use: Never Used Second Hand Smoke Exposure: Yes service: No Current occupational status: employed Current occupation: [employer] Current occupational exposures/hazards: No Cognitive needs: No Hearing needs: No Vision needs: No Questionnaire PHQ-9 Over the last 2 weeks, how often have you been bothered by any of the following problems? 1. Little interest or pleasure in doing things: several days 2. Feeling down, depressed, or hopeless: not at all 3. Trouble falling or staying asleep, or sleeping too much: several days 4. Feeling tired or having little energy: several days 5. Poor appetite or overeating: not at all 6. Feeling bad about yourself - or that you are a failure or have let yourself or your family down: not at all 7. Trouble concentrating on things, such as reading the newspaper or watching television: not at all 8. Moving or speaking so slowly that other people could have noticed. Or the opposite - being so fidgety or restless that you have been moving around a lot more than usual: several days 9. Thoughts that you would be better off or of hurting yourself in some way: not at all Total score: 4 Depression Screening Interpretation: Positive Depression Screening Follow-up: Existing condition and Follow-up Visit Requested Depression Screening Done: Yes 44023 - PHQ-9 Billing: Yes Source: Developed by Drs. Pete Begum, Christy Michelle, Mike Cameron and colleagues, with an educational sybil from [employer]. Thrive Questionnaire Date Thrive assessed: 01/09/25 I am a: Patient What is your living situation today?: I have a steady place to live Within the past 12 months, did the food you bought not last and you didn't have the money to get more?: Never true Within the past 12 months, did you worry whether your food would run out before you got money to buy more?: Never true Do you have trouble paying for medicines?: No Do you have trouble getting transportation to medical appointments?: No Do you have trouble paying your heating and electricity bill?: No Do you have trouble taking care of your child, family member or friend?: No Do you have trouble with day-to-day activities such as bathing, preparing meals, shopping, managing finances, etc.?: No Are you currently unemployed and looking for a job?: No Are you interested in more education?: No Please select the resources that you would like help with: None Currently or been in a relationship where the following occur: No concerns reported THRIVE Score: 0 AUDIT C Alcohol Use Questionnaire (AUDIT-C) 1. How often do you have a drink containing alcohol?: Monthly or less 2. How many drinks containing alcohol do you have on a typical day when you are drinking?: 3 or 4 3. How often do you have six or more drinks on one occasion?: Less than monthly Total Score: 3 LUDMILA-7 AMB Questionnaire LUDMILA-7 Date LUDMILA - 7 assessed: 02/08/25 Feeling nervous, anxious, or on edge: 0 = Not at all Not being able to stop or control worryin = Not at all Worrying too much about different things: 0 = Not at all Trouble relaxin = Not at all Being so restless that it is hard to sit still: 0 = Not at all Becoming easily annoyed or irritable: 0 = Not at all Feeling afraid as if something awful might happen: 0 = Not at all Total LUDMILA-7 score (0-4 normal; 5-9 mild; 10-14 moderate; 15-21 severe): 0 Source: Developed by Drs. Pete Begum, Christy Michelle, Mike Cameron and colleagues, with an educational sybil from [employer]. LUDMILA-7 Assessment Billing LUDMILA-7 Assessment Tool: LUDMILA-7 Assessment 23384 Review of Systems Const All systems reviewed & are unremarkable except as noted in HPI and below Card Denies chest pain at rest, Denies chest pain with activity, Denies edema, Denies irregular heart rhythm, Denies claudication, Denies dyspnea, Denies dyspnea on exertion, Denies orthopnea, Denies paroxysmal nocturnal dyspnea and Denies slow heart rate Resp Denies cough, Denies dyspnea and Denies dyspnea on exertion GI Denies abdominal pain, Denies change in bowel habits, Denies excessive flatus, Denies nausea and Denies vomiting Denies urinary incontinence, Denies urinary hesitancy and Denies urinary urgency Musc Denies atrophy, Denies deformity and Denies limited range of motion Physical exam (Primary Care) Vital Signs: Last Vital Signs BP 110/70 04/05/25 16:55 BMI result Body Mass Index 27.9 Tobacco/Smoking Status: Tobacco use Status Tobacco use date assessed 02/08/25 04/05/25 16:53 Patient Tobacco Use Status Never used Tobacco 04/05/25 16:53 e-Cigarette/Vaping Use Never Used 04/05/25 16:53 PHQ-9: PHQ-9 Score PHQ-9: Total score 4 04/05/25 17:32 Depression Screening Interpretation: Positive Depression Screening Follow-up: Existing condition and Follow-up Visit Requested Thrive Assessment: Date of Thrive Assessment Date Thrive assessed 01/09/25 04/05/25 16:53 Currently or been in a relationship where the following occur: No concerns reported Resp Effort & Inspection: normal respiratory effort Auscultation: clear to auscultation bilaterally Cardio Jugular venous distension: no JVD Rate: regular rate Rhythm: regular rhythm Heart sounds: S1 normal heart sound present and S2 normal heart sound present Extrem General: Yes full ROM Coding Level of Care Code Est Pt Level 3 (99386) Complex EM visit Add On G2211 Diagnoses Asthma J45.909 Environmental allergies Z91.09 Additional Codes LUDMILA-7 Assessment Billing - LUDMILA-7 Assessment Tool: LUDMILA-7 Assessment 82024 ([id number]) PHQ-9 - 47646 - PHQ-9 Billing: Yes ([id number]) Time Spent (min) 19 Assessment & Plan Assessment & Plan (1) Asthma: Code(s): J45.909 - Unspecified asthma, uncomplicated Category: Medical (2) Environmental allergies: Code(s): Z91.09 - Other allergy status, other than to drugs and biological substances Category: Medical Plan Current management for asthma and allergies remains unchanged given stable lung function. To lower irritant exposure, mainly in her workplace, the exploration of alternative employment was encouraged. No immediate intervention was initiated for mild depression due to patient preference. The patient should continue her current course of antibiotics for acute amygdala concerns, with prompt follow-up should symptoms persist or worsen. Patient was informed and verbally consented to the use of an ambient scribe for clinic note documentation during this visit. I discussed with the patient the importance of maintaining her current asthma medication regimen, considering the stable lung function tests. We reviewed the impact of her work environment on her respiratory health and discussed the potential benefits of seeking alternative employment. I addressed her mild depressive symptoms, affirming her choice to not pursue treatment at this time. For her acute amygdala issue, the use of antibiotics was confirmed, with anticipation of follow-up if symptoms persist. Patient Instructions: - Continue current asthma and allergy medications (Albuterol, Cetirizine, Flonase, Trelegy, Singulair). - Monitor for any new or worsening symptoms, especially in relation to the antibiotics. - Consider seeking alternative employment to reduce dust exposure. - Follow-up with a healthcare provider if symptoms related to the amygdala or any new health concerns arise. - Contact the clinic if there are any questions or concerns regarding medication or health changes.
[2025-04-05 16:55] VITALS: BP 110/70; BMI 27.9
== END 2025-04-05 17:22 | disposition home or self-care (01) ==
LOC: HO.HMCH 16:48
PROVIDERS: PCP Internal Medicine; Visit Provider Internal Medicine
DX: J45.909 Unspecified asthma, uncomplicated (principal); Z91.09 Other allergy status, other than to drugs and biological substances

== ENCOUNTER → 2025-04-05 16:47 | Outpatient (BNVA) | payer OTHER, SELFPAY | PROVIDERS: PCP Internal Medicine; Visit Provider Internal Medicine | DX: J45.909 Unspecified asthma, uncomplicated (principal); R53.83 Other fatigue; F32.A Depression, unspecified; Z57.2 Occupational exposure to dust; Z91.09 Other allergy status, other than to drugs and biological substances | CPT/HCPCS: 96127; 99212 ==

== ENCOUNTER 2025-07-11 13:01 | Outpatient (AMB) | payer OTHER, SELFPAY ==
[2025-07-11 13:04] VITALS: BP 110/68; PULSE 73; O2SAT 98; BMI 27.9
--- NOTE | 2025-07-11 13:04 | MHC.OFFVIS ---
Vital Signs 07/11/25 13:04 Height 4 ft 11 in Weight 138 lb 6 oz BMI 27.9 BP 110/68 Blood Pressure Location Rt brachial Position Sitting Pulse 73 Pulse Source Pulse Oximeter Pulse Oximetry (%) 98 Oxygen Delivery Method Room Air Intake Visit Reasons: Asthma Allergies Seasonal Allergies Allergy (Intermediate, Verified 07/11/25 13:07) sneezing, mucus HPI HPI Asthma: Details: Celine is a pleasant 24 year old female, never smoker, with underlying asthma since childhood. She was initially referred by PCP for pulmonary evaluation for uncontrolled asthma started on Trelegy with significant improvement. Unfortunately, since April patient has discontinued Trelegy after completing a course of prednisone for an exacerbation. She has also since discontinued Singulair. 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 She denies chest congestion, fevers or chills. She has albuterol MDI as well as nebulized therapy but yet not used them. [facility] Medical History Allergic rhinitis Cough Abdominal pain Overweight (BMI 25.0-29.9) Mild asthma Surgical History No pertinent past surgical history Family History Mother No problems noted. Father No problems noted. Social History Housing: House Alcohol intake: current Alcohol intake frequency: holidays/special occasions only Alcohol type: other Patient Tobacco Use Status: Never used Tobacco e-Cigarette/Vaping Use: Never Used Second Hand Smoke Exposure: Yes service: No Current occupational status: employed Current occupation: [employer] Current occupational exposures/hazards: No Cognitive needs: No Hearing needs: No Vision needs: No Review of Systems Const Denies chills, Denies excessive sweating, Denies fever(s), Denies headache(s) and Denies night sweats Eyes Denies dry eyes, Denies irritation and Denies itchy eyes ENT Reports Normal hearing present, Denies headache(s), Denies post nasal drip and Denies sore throat Card Denies chest pain, Denies chest pain at rest, Denies chest pain with activity, Denies claudication, Denies leg edema, Denies orthopnea and Denies paroxysmal nocturnal dyspnea Resp Denies change in phlegm color, Denies chest congestion, Denies hemoptysis, Denies excessive phlegm production, Denies pain on inspiration, Denies pain with cough and Denies stridor Musc Denies myalgias Neuro Reports Normal hearing present and Denies headache(s) Endo Denies excessive sweating Ziggy/Lymph Denies lymphadenopathy Aller/Immun Denies itchy eyes and Reports seasonal rhinorrhea Physical Exam Vital Signs: Last Vital Signs Pulse 73 07/11/25 13:04 BP 110/68 07/11/25 13:04 Pulse Ox 98 07/11/25 13:04 Oxygen Delivery Method Room Air 07/11/25 13:04 BMI result Body Mass Index 27.9 Const General: cooperative, healthy appearing, comfortable, no acute distress, well developed and alert Orientation/consciousness: patient oriented x3 Limitations: no limitations HEENT Head: Yes normal to inspection, Yes normocephalic and Yes atraumatic Ears: hearing grossly normal bilaterally and external ears normal Eyes General: appearance normal, both eyes and all related structures Eyelids: Yes eyelids normal Sclerae: sclerae normal EOM: EOMs intact bilaterally Neck Neck: Yes normal visual inspection and Yes no lymphadenopathy Lymphatic: no lymphadenopathy noted Chest Chest palpation & inspection: normal inspection of the chest Resp Other: diminshed aeration throughout significant improvement with nebulized albuterol which patient tolerated well Effort & Inspection: normal respiratory effort, able to speak in complete sentences, no audible wheezes, no cough, no stridor, not tachypneic, no tripod positioning and no use of accessory muscles Auscultation: diminished lung sounds Cardio Jugular venous distension: no JVD Rate: regular rate Rhythm: regular rhythm Skin Other: warm, dry General skin exam: no rashes or lesions noted Neuro General: patient oriented x3 Cranial nerves: Yes Normal hearing present Cognition (Neuro): normal cognition Gait exam (Neuro): Normal gait present Extrem General: Yes normal to inspection, Yes capillary refill normal, Yes no clubbing, cyanosis or edema and Yes no pedal edema Psych Appearance: grossly normal and well kempt Speech and movement: Normal speech and movement present and Clear speech present Affect: normal affect Attitude: cooperative Thought process: Normal thought process present Thought content: Normal thought content present Insight: Good insight present (Psych) Judgement: Good judgement present (Psych) Office Procedures Nebulizer Treatment Nebulizer Treatment [id number]-Uukwixriv/MDI RX initial, or Nebulizer Subsequent Treatment Office Meds albuterol sulfate 2.5 mg/3 mL (0.083 %) solution for nebulization Performing Provider: Nu Lanier NP Performing Location: [facility] Pul[facility]ology Services-[facility] Administered by: Karla Johnson LPN on 07/11/25 13:25 Dose Route Admin Location Dispensed Lot Number Expiration Date 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 2.5 mg inhalation 3 mL [id number] 12/22/25 5701-8700-43 MYLAN Assessment & Plan Assessment & Plan (1) Asthma: Code(s): J45.909 - Unspecified asthma, uncomplicated Category: Medical (2) Environmental allergies: Code(s): Z91.09 - Other allergy status, other than to drugs and biological substances Category: Medical (3) Allergic rhinitis: Code(s): J30.9 - Allergic rhinitis, unspecified Category: Medical Qualifiers: Allergic rhinitis seasonality: seasonal Allergic rhinitis trigger: other Qualified Code(s): J30.89 - Other allergic rhinitis (4) Cough: Code(s): R05.9 - Cough, unspecified Category: Medical Qualifiers: Cough type: subacute Qualified Code(s): R05.2 - Subacute cough Plan Patient reports worsening asthma symptoms over the last day after dust exposure, known allergy. She has discontinued Trelegy as well as Singulair as she felt respiratory symptoms were controlled. Discussed importance of compliance with medications as well as preventative nature of medications and to prevent prednisone use. Lung sounds initially with decreased aeration with significant improvement after nebulized therapy without wheezing. Discussed restarting Trelegy and use of nebulized therapy at home BID for the next 3-5 days if symptoms continue to worsen call office for prednisone and if significant symptoms develop seek emergent care. Also discussed restarting Singulair. All questions were answered and patient is in agreement of plan. Will follow up in 6-8 weeks or sooner if needed. Orders: Orders AMB Nebulizer Treatment Today J45.909 - Unspecified asthma, uncomplicated, R05.2 - Subacute cough Medications: New eziptozrukx-osmlrsoau-afnxqxcr 200-62.5-25 mcg (Trelegy Ellipta) 1 inh inhalation DAILY 60 ea 3RF Coding Level of Care Code Est Pt Level 4 (30954) Diagnoses Asthma J45.909 Environmental allergies Z91.09 Seasonal allergic rhinitis due to other allergic trigger J30.89 Allergic rhinitis seasonality: seasonal Allergic rhinitis trigger: other Subacute cough R05.2 Cough type: subacute CPT Codes Nebulizer Treatment - Nebulizer Treatment, initial or subsequent: [id number]/MDI RX initial, or Nebulizer Subsequent Treatment ([id number])
--- OUTSIDE RECORDS SUMMARY | 2025-07-11 13:53 | XMS_ITS | Clinical Summary ---
Author Organization [facility] ity Address [address] [place] [address] Care Team Providers Care Software Support Representative Name Role Phone Unavailable Primary Care Provider [...] Cervical Cancer Screening: P ap Smear 2021 HIV Screening 10/20/2022 Hepatitis C Screening 10/20/2022 Social Influencers of Health Screening 10/20/2022 COVID-19 Vaccine (1 - 2023-2 5 season) 2024 Depression Screening 11/22/2024 Influenza Vaccine (#1) 2025 HIB Vaccines Aged Out No longer [...] 5 Years) and At-Risk Patients (6 to 49 Years) Aged Out No longer eligible b ased on patient's age to complete this topic RSV Immunization Patients Un jorge 20 months Aged Out No longer eligible b ased on patient's age to complete this topic Varicella Vaccines Aged Out No longer eligible based on patient's age to complete this topic
--- OUTSIDE RECORDS SUMMARY | 2025-07-11 13:53 | XMS_ITS | Clinical Summary ---
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 Name Role Phone Unavailable Primary Care Provider [...] Date Last Done Comments Depression Screening 2000 Disability Screening 2000 Alcohol/Substance Use Screening 2012 Tobacco Screening 2012 Family Planning (PISQ) 2015 Pap Smear 2021 DTaP/Tdap/Td Vaccines (7 - Td or Tdap) 08/15/2023 08/15/2013, 12/11/2004, 05/08/2003, Additional history exists COVID-19 Vaccine ( season) 2024 Influenza Vaccine (#1) 2025 12/03/2014, 2012 Zoster Vaccines (1 of 2) 2050 RSV Patients and Patients Aged 60 years or older (1 - 1-dose 75+ series) 2075 Pneumococcal Vaccine: Pediatrics (0 to 5 Years) and At-Risk Patients (6 to 49) Years Aged Out 01/06/2001 No longer eligible based [...] Hepatitis A Vaccines Completed 05/18/2016, 12/03/19 15 Meningococcal B Vaccine Aged Out No l onger eligible based on patient's age to complete this topic RSV under 20 months Aged Out No longe r eligible based on patient's age to complete this topic Rotavirus Vaccines Aged Out No longer eligible based on patient's age to complete this topic
== END 2025-07-11 13:32 | disposition home or self-care (01) ==
LOC: HO.HPSW 13:01
PROVIDERS: PCP Internal Medicine; Visit Provider Nurse Practitioner Family
DX: J45.909 Unspecified asthma, uncomplicated (principal); Z91.09 Other allergy status, other than to drugs and biological substances; J30.89 Other allergic rhinitis; R05.2 Subacute cough
CPT/HCPCS: 99214

== ENCOUNTER → 2025-07-11 13:01 | Outpatient (BNVA) | payer OTHER, SELFPAY | PROVIDERS: PCP Internal Medicine; Visit Provider Nurse Practitioner Family | DX: J45.909 Unspecified asthma, uncomplicated (principal); R05.2 Subacute cough; Z91.09 Other allergy status, other than to drugs and biological substances | CPT/HCPCS: 94640; 99212 ==

== ENCOUNTER 2025-10-09 16:48 | Outpatient (AMB) | payer OTHER, SELFPAY ==
[2025-10-09 16:56] VITALS: BP 90/62; PULSE 79; RESP 18; O2SAT 100; BMI 27.4
--- NOTE | 2025-10-09 16:56 | MHC.PC.OV ---
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 Accompanied by: Self / Same As Patient Allergies Seasonal Allergies Allergy (Intermediate, Verified 10/09/25 17:12) sneezing, mucus Medication List - Last Reconciled 10/09/25 by Shantell Piña MD albuterol sulfate 2.5 mg (3 mL) inhalation Q4-6H PRN albuterol sulfate 90 mcg/actuation 2 puffs inhalation Q6H PRN 30 days cetirizine (All Day Allergy (cetirizine)) 10 mg PO DAILY PRN yfisodmpwzs-wlyghlsjg-xecznuwi 200-62.5-25 mcg (Trelegy Ellipta) 1 inh inhalation DAILY nzlkqkdrbth-zulrcsmqf-qllirrah 200-62.5-25 mcg (Trelegy Ellipta) 1 inh inhalation DAILY lidocaine 5% (Lidoderm) 1 patch topical DAILY montelukast 10 mg PO BEDTIME Tobacco use date assessed: 10/09/25 Dental Screening Dental Screen Date: 10/09/25 Did you have a dental visit in the last 12 months?: Yes Did you have a dental problem in the last 6 months where you did not have access to dental care?: No Was dental information given to patient?: Patient has dentist HPI HPI Comments History of Present Illness Details The patient is a 24-year-old female presenting for a physical examination. She has a history of surgery on August 07. The patient currently uses Singulair (montelukast). Pap smear was 2 years ago and was normal. The patient reports pain in her right knee, which is sometimes worse at night. She has a history of a fracture, and notes that her knee was not evaluated at that time. Also has blurry vision and would like to see frame bander. [facility] Medical History (Updated 10/09/25 @ 17:23 by Shantell Piña MD) Allergic rhinitis Cough Abdominal pain Overweight (BMI 25.0-29.9) Mild asthma Surgical History (Updated 10/09/25 @ 17:17 by Shantell Piña MD) Hx of tonsillectomy No pertinent past surgical history Family History Mother No problems noted. Father No problems noted. Social History Housing: House Alcohol intake: current Alcohol intake frequency: holidays/special occasions only Alcohol type: other Patient Tobacco Use Status: Never used Tobacco e-Cigarette/Vaping Use: Never Used Second Hand Smoke Exposure: Yes service: No Current occupational status: employed Current occupation: [employer] Current occupational exposures/hazards: No Cognitive needs: No Hearing needs: No Vision needs: No Questionnaire Thrive Questionnaire Date Thrive assessed: 10/09/25 I am a: Patient What is your living situation today?: I have a steady place to live Within the past 12 months, did the food you bought not last and you didn't have the money to get more?: Never true Within the past 12 months, did you worry whether your food would run out before you got money to buy more?: Never true Do you have trouble paying for medicines?: No Do you have trouble getting transportation to medical appointments?: No Do you have trouble paying your heating and electricity bill?: No Do you have trouble taking care of your child, family member or friend?: No Do you have trouble with day-to-day activities such as bathing, preparing meals, shopping, managing finances, etc.?: No Are you currently unemployed and looking for a job?: No Are you interested in more education?: No Please select the resources that you would like help with: None Currently or been in a relationship where the following occur: No concerns reported THRIVE Score: 0 AUDIT C Alcohol Use Questionnaire (AUDIT-C) 1. How often do you have a drink containing alcohol?: Monthly or less 2. How many drinks containing alcohol do you have on a typical day when you are drinking?: 3 or 4 3. How often do you have six or more drinks on one occasion?: Less than monthly Total Score: 3 LUDMILA-7 AMB Questionnaire LUDMILA-7 Date LUDMILA - 7 assessed: 02/08/25 Feeling nervous, anxious, or on edge: 0 = Not at all Not being able to stop or control worryin = Not at all Worrying too much about different things: 0 = Not at all Trouble relaxin = Not at all Being so restless that it is hard to sit still: 0 = Not at all Becoming easily annoyed or irritable: 0 = Not at all Feeling afraid as if something awful might happen: 0 = Not at all Total LUDMILA-7 score (0-4 normal; 5-9 mild; 10-14 moderate; 15-21 severe): 0 Source: Developed by Drs. Pete Begum, Christy Michelle, Mike Cameron and colleagues, with an educational sybil from [employer]. LUDMILA-7 Assessment Billing LUDMILA-7 Assessment Tool: LUDMILA-7 Assessment 46070 Review of Systems Const All systems reviewed & are unremarkable except as noted in HPI and below Card Denies chest pain at rest, Denies chest pain with activity, Denies edema, Denies irregular heart rhythm, Denies claudication, Denies dyspnea, Denies dyspnea on exertion, Denies orthopnea, Denies paroxysmal nocturnal dyspnea and Denies slow heart rate Resp Denies cough, Denies dyspnea and Denies dyspnea on exertion GI Denies abdominal pain, Denies change in bowel habits, Denies excessive flatus, Denies nausea and Denies vomiting Denies urinary incontinence, Denies urinary hesitancy and Denies urinary urgency Physical exam (Primary Care) Vital Signs: Last Vital Signs Pulse 79 10/09/25 16:56 Resp 18 10/09/25 16:56 BP 90/62 10/09/25 16:56 Pulse Ox 100 10/09/25 16:56 Oxygen Delivery Method Room Air 10/09/25 16:56 BMI result Body Mass Index 27.4 Tobacco/Smoking Status: Tobacco use Status Tobacco use date assessed 10/09/25 10/09/25 17:03 Patient Tobacco Use Status Never used Tobacco 10/09/25 17:03 e-Cigarette/Vaping Use Never Used 10/09/25 17:03 Thrive Assessment: Date of Thrive Assessment Date Thrive assessed 10/09/25 10/09/25 17:03 Currently or been in a relationship where the following occur: No concerns reported HENMT Head: Yes normal to inspection, Yes normocephalic and Yes atraumatic Ears: external ears normal Eyes General: appearance normal, both eyes and all related structures Eyelids: Yes eyelids normal Conjunctivae: conjunctivae normal Neck Neck: Yes normal visual inspection and Yes supple Resp Effort & Inspection: normal respiratory effort Auscultation: clear to auscultation bilaterally Cardio Jugular venous distension: no JVD Rate: regular rate Rhythm: regular rhythm Heart sounds: S1 normal heart sound present and S2 normal heart sound present GI Inspection: Yes normal to inspection Palpation (GI): Soft to palpation and nontender Auscultation: normal bowel sounds Skin General skin exam: no rashes or lesions noted Neuro General: no focal motor deficits Extrem General: Yes full ROM Psych Appearance: grossly normal Coding Level of Care Code Est Pt Level 3 (71779) Est Pt Prev Care 18-39y(87252) Diagnoses Annual physical exam Z00.00 Right knee pain M25.561 Blurry vision H53.8 Additional Codes LUDMILA-7 Assessment Billing - LUDMILA-7 Assessment Tool: LUDMILA-7 Assessment 17146 ([id number]) Time Spent (min) 33 Assessment & Plan Assessment & Plan (1) Annual physical exam: Code(s): Z00.00 - Encounter for general adult medical examination without abnormal findings Category: Medical (2) Right knee pain: Code(s): M25.561 - Pain in right knee Category: Medical (3) Blurry vision: Code(s): H53.8 - Other visual disturbances Category: Medical Plan Plan 1. Physical exam Repeat in a year. 2. Right Knee Pain A referral to orthopedics will be made for further evaluation of the right knee pain. An X-ray of the right knee and a referral for physical therapy will be ordered. 3. Blurry vision Referred to Ophthalmology. Orders: Orders XR knee RT 2V Today G89.29 - Other chronic pain, M25.561 - Pain in right knee PT Evaluation and Treatment Today G89.29 - Other chronic pain, M25.561 - Pain in right knee Referrals Orthopedics Referral M25.561 - Pain in right knee Ophthalmology Referral H53.8 - Other visual disturbances
--- OUTSIDE RECORDS SUMMARY | 2025-10-10 13:29 | XMS_ITS | Clinical Summary ---
Author Organization [facility] ity Address [address] [place] [address] Care Team Providers Care Kaiawhina Name Role Phone Unavailable Primary Care Provider [...] Screening: P ap Smear 2021 Depression Screening 11/22/2024 COVID-19 Vaccine (1 - 2024-2 6 season) 2025 Influenza Vaccine (#1) 2025 RSV Immunization Adult Patie nts (1 - 1-dose 75+ series) 2075 HIB Vaccines Aged Out No longer eligi [...]
--- OUTSIDE RECORDS SUMMARY | 2025-10-10 13:29 | XMS_ITS | Clinical Summary ---
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
--- OUTSIDE RECORDS SUMMARY | 2025-10-10 13:29 | XMS_ITS | Data Portability ---
Author Organization [place] - [facility] Address [address] [address] Care Team Providers Care Instrument And Electrical Technician Name Role Phone SHIV HUANG Primary Care Provider [phone] KONG BUSTILLO Referring Provider [phone] Assessment Encounter Date Assessment Date Assessment LastModified by Organization Details LastModified Time 04/06/2025 04/06/2025 The patient meet s criteria for tonsillectomy. The surgery will be done under general anesthesia with no cuts through the skin. After the surgery the patient should expect temporary bad breath, ear aches, still neck and the worst sore throat of their life. It will typically last up to 2 weeks. There is a 5% risk of bleeding during the healing process when the scab falls off. If this occurs, they are encouraged to call the office to discuss management. Occasionally it requires a trip to the emergency room and or operating room to control the bleeding. Additional risks of dehydration, hospital readmission, throat pain, voice change, swallowing dysfunction and velopharyngeal insufficiency are also possible. Pain control with alternating doses of Tylenol (acetaminophen) and Motrin (ibuprofen) obopsg-eoc-iebda every 3 hours are recommended. Use of narcotics and antibiotics are not recommended. Usually 1 week out of school or work is needed to recover, and then they may return with light activities for an additional week before resuming regular routine. They will contact our office to schedule at a mutually convenient time. All questions were answered. [email or web address] Not available 04/06/2025 16:03:11 Plan of Treatment Reminders Order Date Submit Date Provider Last Modified By Organization Details Last Modified Time Details Appointments None recorded. Lab None recorded. Referral None recorded. Procedures None recorded. Surgeries tonsillecto my (SURG) 2024 025 [email or web address] Not available 09:04:12 Imaging None recorded. Medication Orders None recorded. Patient TargetsNo targets recorded. Patient InstructionsNo instructions recorded. Reason for Referral None Reported. Results Created Date Observation Date Name Description Value Unit Range Abnormal Flag Note LastModifiedBy Organization Detail LastModifiedTime Result Notes None recorded. Problems Name Problem SNOMED Code Status Onset Date Resolution Date Notes Provider Name and Address Organization Details Recorded Time Chronic tonsillitis 48759231 Active 025 LUIS DURAN MD [address], [address], [place] - [facility] 16:03:05 Problem Notes None recorded. Procedures Surgical History Date Name Laterality Status Provider Name and Address Organization Details Recorded Time 08/07/20 25 tonsillectomy completed LUIS DURAN MD [address] [place] [address], [address], [place] - [facility] 08/07/2025 12:04:04 08/07/20 25 TONSILLECTOMY (SURG) completed Wesley Brooks [place] [facility] 08/08/2025 09:33:33 08/07/20 25 TONSILLECTOMY (SURG) completed Wesley Brooks [place] [facility] 08/08/2025 09:33:40 Imaging Results None recorded. Procedure Notes None recorded. Medical Equipment None Reported. Allergies No known drug allergies Medications Name Sig Start Date Stop Date Status Note LastModified by Organization Details LastModified Time Anti-Diarrh eal (loperamide ) 2 mg tablet TAKE 1 TABLET BY MOUTH EVERY 4 HOURS X3 DAYS NEEDED FOR LOOSE STOOL, NOT TO EXCEED 16 MG/DAY 04/06 completed Not Available Not Available Not Available clindamycin HCl 300 mg capsule TAKE 1 CAPSULE BY MOUTH EVERY 6 HOURS FOR 7 DAYS active Not Available Not Available No t Available albuterol sulfate 2.5 mg/3 mL (0.083 %) solution for nebulizatio n 2.5 MG (3 ML) INHALED EVERY 4 TO 6 HOURS NEEDED FOR SHORTNESS OF BREATH OR WHEEZING active Not Available Not Available No t Available cetirizine 10 mg tablet TAKE 1 TABLET BY MOUTH DAILY NEEDED FOR ALLERGY SYMPTOMS FOR 30 DAYS active Not Available Not Available No t Available ibuprofen 800 mg tablet TAKE 1 TABLET BY MOUTH THREE TIMES A DAY NEEDED FOR PAIN FOR 10 DAYS active Not Available Not Available No t Available prednisone 20 mg tablet TAKE 2 TABLETS BY MOUTH EVERY DAY active Not Available Not Available No t Available penicillin V potassium 500 mg tablet TAKE 1 TABLET BY MOUTH 3 TIMES A DAY FOR 10 DAYS active Not Available Not Available No t Available acetaminoph en 500 mg tablet TAKE 2 TABLET BY MOUTH EVERY 6 HOURS FOR 10 DAYS NEEDED FOR PAIN active Not Available Not Available No t Available benzonatate 100 mg capsule 200 MG (2 X 100 MG) ORALLY 2 TIMES A DAY FOR COUGH active Not Available Not Available No t Available montelukast 10 mg tablet TAKE 1 TABLET BY MOUTH EVERY DAY AT BEDTIME active Not Available Not Available No t Available ibuprofen 600 mg tablet TAKE 1 TABLET BY MOUTH EVERY 6 HOURS NEEDED FOR 10 DAYS active Not Available Not Available No t Available ondansetron 4 mg disintegrat ing tablet TAKE 1 TABLET BY MOUTH EVERY 8 HOURS NEEDED FOR NAUSEA AND VOMITING FOR 3 DAYS 04/06 completed Not Available Not Available Not Available Ventolin HFA 90 mcg/actuati on aerosol inhaler 2 PUFF INHALED EVERY 6 HOURS NEEDED FOR SHORTNESS OF BREATH OR WHEEZING FOR 30 DAYS active Not Available Not Available No t Available Trelegy Ellipta 100 mcg-62.5 mcg-25 mcg powder for inhalation INHALE 1 PUFF BY MOUTH DAILY active Not Available Not Available No t Available Trelegy Ellipta 200 mcg-62.5 mcg-25 mcg powder for inhalation INHALE 1 PUFF DAILY active Not Available Not Available No t Available Vitals Date Recorded Body height Body mass index (BMI) Body weight Provider Name and Address Organization Details Last Updated DateTime 04/06/2025 149.86 cm 27.9 kg/m2 85265.75 g [facility] 04/06/2025 15:57:16 Social History None recorded. Functional Status None recorded. Mental Status None recorded. Family History Nothing Reported. Medical History Condition Response Asthma Y Gynecological HistoryNo gynecological history recorded. Obstetrics History GPAL:G 0 P 0 0 0 0 Past Encounters Encounter ID Performer Location Encounter Start Date Encounter Closed Date Diagnosis/Indication Diagnosis SNOMED-CT Code Diagnosis ICD10 Code Diagnosis IMO Codes Diagnosis Note [id number] LUIS DURAN MD [facility] [address] [place] [address] 04/06/2025 15:25:19 04/06/2025 16:06:55 Chronic tonsillitis 71719782 J35.01 431587 tonsilliti s 7 episodes in past year Health Concerns Section Related Observation LastModified by Organization Detai ls LastModified Time None Recorded Concern Status LastModified by Organization Details LastModified Time None Recorded Advance Directives Directive None Recorded Payers Insurance Date Sequence Insurance Name Policy Number Policy Xiong Covered Member ID [id number] Member ID Guarantor Name 04/06/2025 1 [facility] H[facility] [id number] Celine Carderon Haywood [id number] Celine Alston Haywood 08/07/2025 1 [facility] [employer] - [facility] [employer] (HMO) [id number] Celine Carderon Haywood [id number] Celine Alston Haywood Notes Date Note Type Note Provider Name and Address Organization Details Recorded Time 04/06/20 25 text/htm l ROS as noted in the HPI tonsillitiscurrently on abx since Wednesday7 times in past 12 months, usually treated by urgent care with ibuprofen and abxno hospitalizationsotherwise healthytob - 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
== END 2025-10-09 17:21 | disposition home or self-care (01) ==
LOC: HO.HMCH 16:49
PROVIDERS: PCP Internal Medicine; Visit Provider Internal Medicine
DX: Z00.00 Encounter for general adult medical examination without abnormal findings (principal); M25.561 Pain in right knee; H53.8 Other visual disturbances

== ENCOUNTER → 2025-10-09 16:48 | Outpatient (BNVA) | payer SELFPAY | PROVIDERS: PCP Internal Medicine; Visit Provider Internal Medicine | DX: Z00.00 Encounter for general adult medical examination without abnormal findings (principal); M25.561 Pain in right knee; H53.8 Other visual disturbances; G89.29 Other chronic pain | CPT/HCPCS: 96127; 99212; 99395 ==